=== PATIENT | female | born 1960 | race Caucasian/White ===

== ENCOUNTER → 2020-02-18 13:39 | Outpatient (BNVA) | payer BC, SELFPAY | PROVIDERS: Visit Provider Obstetrics & Gynecology | DX: Z76.89 Persons encountering health services in other specified circumstances (principal) ==

== ENCOUNTER 2020-03-04 12:42 | Outpatient (REF) | payer BC, SELFPAY ==
--- NOTE | 2020-03-04 13:04 | XR_ITS ---
EXAMINATION: XR SHOULDER, RIGHT CLINICAL INFORMATION: Pain COMPARISON: None TECHNIQUE: AP external rotation, Grashey, scapular Y, and axillary views of the right shoulder. FINDINGS: No acute fracture or dislocation. Small marginal osteophytes present along the acromioclavicular joints. Mild resorptive changes as within the acromion at the acromioclavicular joint. Soft tissues unremarkable. XR/XR shoulder RT min 2V IMPRESSION: No acute fracture or dislocation. Degenerative changes as described.
== END 2020-03-04 12:43 | disposition home or self-care (01) ==
LOC: HO.HOSX 12:42
PROVIDERS: PCP Internal Medicine; Visit Provider Physician Assistant
DX: M25.511 Pain in right shoulder (principal); M75.80 Other shoulder lesions, unspecified shoulder
CPT/HCPCS: 20610; 73030; J1040

== ENCOUNTER 2020-05-20 10:00 | Outpatient (RCR) | payer BC, SELFPAY ==
--- NOTE | 2020-03-18 11:38 | MHC.PT.EP ---
[facility] [place] Office [place] Office [place] Office [address] Angelique Calixto [address] [phone] F: [phone] F: [phone] F: [phone] F: [phone] Physical Therapy Plan of Care Date of Evaluation: 03/18/20 Date of Surgery: Diagnosis: Other shoulder lesions Assessment: This is a 59 y/o female referred to skilled PT with a diagnosis of other shoulder lesion, unspecified shoulder. SONIA: right shoulder pain suddenly after lifting her 20lb grandson out of his crib in November. She states that she felt a pop sensation and has had pain ever since. The patient went to her PCP initially and then was referred to [facility]. (+) cortisone injection 2 weeks ago w/ no relief. X-rays of the shoulder essentially negative. Pt then referred for course of physical therapy. She has no history of shoulder pain. Assessment of the shoulder reveals decreased PROM/AAROM/AROM, impaired strength, tenderness to palpation @ biceps tendon, supraspinatus, deltoid muscle belly, teres, upper trap, scalenes, and medial scap border, impaired scapulohumeral joint rhythm, weak and painful resisted tests into shoulder abduction, strong and painful resisted tests into right shoulder flex/ER/IR/adduction, and impaired posture/postural awareness. Related functional limitations include: difficulty lifting, reaching, washing hair/back, performing household tasks such as washing her tub, sleeping, and carrying. Pt will benefit from skilled PT services 2x/week for 5 weeks in order to reduce impairments and improve limitations. Frequency and Duration: The patient will be seen 2x/week for 5 weeks Short Term Goals: -In 2 weeks, Pt to improve PROM of the right shoulder in all impaired directions by at least 20 degrees. -In 3 weeks, Pt to report < 6/10 pain with movement of the right shoulder. Shelter Goals: -In 4 weeks, Pt to demonstrate the ability to retrieve a 1# object off a shelf above eye level w/ < 3/10 pain. -In 5 weeks, Pt to demonstrate I w/ HEP. -In 5 weeks, Pt to demonstrate improved AROM in all impaired directions by at least 30 degrees from IE baseline. Treatment Plan: Modalities to reduce pain, spasms and effusion. Manual therapy to restore motion and function. Therapeutic exercise to improve strength and flexibility. Neuromuscular re-education for posture and balance. Therapeutic activities to return to functional activities of daily living. Electronically signed by: Elisa Matute PT, DPT Please sign and return to therapist. Thank you for your referral.
--- NOTE | 2020-05-20 11:04 | MHC.PT.DC ---
[facility] [place] Office [place] Office [place] Office [address] Angelique Calixto [address] [phone] F: [phone] F: [phone] F: [phone] F: [phone] Physical Therapy Discharge Report Diagnosis: Other shoulder lesions Date of Surgery: Date of Evaluation: 03/18/20 Date of Discharge: 05/20/20 Treatments to Date: 14 Cancellations to Date: 0 No Shows to Date: 0 Discharge Status: Achieved Goals Improved Function Independent with HEP Discharge Summary: Pt has improved and demonstrates I w/ HEP. She still reports some soreness, but decreased functional limitations are noted and she is prepared to continue HEP on her own. SPADI: 35/130 or 27% impaired. Recommend follow up w/ Ortho or PCP if soreness continues. Electronically signed by: Elisa Matute PT, DPT Please sign and return to therapist. Thank you for your referral.
== END 2020-05-20 11:05 | disposition other institution (70) ==
LOC: HO.PT 10:00
PROVIDERS: Visit Provider Physician Assistant
DX: M75.81 Other shoulder lesions, right shoulder (principal)
CPT/HCPCS: 97033; 97110; 97140; 97161

== ENCOUNTER 2020-10-22 12:22 | Outpatient (REF) | payer BC, SELFPAY ==
--- NOTE | ~2020-10-22 | MM_ITS ---
EXAMINATION: MM SCREENING DIGITAL BREAST TOMOSYNTHESIS, BILATERAL CLINICAL INFORMATION: Screening. Asymptomatic. The lifetime risk of breast cancer based on the Tyrer-Cuzick Model is 7%. COMPARISON: Mammography: 10/15/2019, 08/10/2018, 01/23/2018, 07/18/2017 TECHNIQUE: Digital breast tomosynthesis is performed in both the craniocaudal and mediolateral oblique views along with computer-aided detection (CAD). Synthesized 2D images are generated from the tomosynthesis. FINDINGS: There are scattered areas of fibroglandular density (ACR BI-RADS breast composition Category b). The left breast shows parenchymal pattern similar to prior exams. Some grouped fine nodularity mid outer quadrant is stable. There is no developing density or interval mass or architectural abnormality. Neither breast shows abnormal calcifications. The bilateral axilla and skin contours are unremarkable. Right breast has benign-appearing smooth nodule 0.6 cm anterior central 12:00 position more conspicuous on current study. This may represent small cyst. Patient will be recalled for targeted ultrasound. MM/MM tomosynthesis screening BI IMPRESSION: 1. Right: Smooth nodule anterior central 12:00 position under 1 cm. 2. Left: No mammographic evidence of malignancy. ASSESSMENT: BI-RADS 0: Incomplete - Need Additional Imaging Evaluation RECOMMENDATION: 1. Targeted ultrasound right breast. 2. Radiology department staff will contact the patient for additional imaging. This patient's information was entered into a reminder system with a target due date for their next mammogram.
== END 2020-10-22 12:23 | disposition home or self-care (01) ==
LOC: HO.MAMMO 12:22
PROVIDERS: PCP Internal Medicine; Visit Provider Obstetrics & Gynecology
DX: Z12.31 Encounter for screening mammogram for malignant neoplasm of breast (principal)
CPT/HCPCS: 77063; 77067

== ENCOUNTER 2020-10-30 13:20 | Outpatient (REF) | payer BC, SELFPAY ==
--- NOTE | ~2020-10-30 | US_ITS ---
EXAMINATION: US DIAGNOSTIC ULTRASOUND BREAST, RIGHT CLINICAL INFORMATION: Superior right breast density. COMPARISON: 10/22/2020 and studies dating back to 07/16/2013. TECHNIQUE: Ultrasound of the breast is performed with real-time mason scale imaging and color Doppler. FINDINGS: On mammography of 10/22/2020 there is an approximately 6 mm circumscribed density 12 o'clock position without spiculation or microcalcifications. Targeted ultrasound evaluation demonstrated at the 12 o'clock position approximately 1 cm from the nipple a hypoechoic and smoothly circumscribed lesion with some distal sound enhancement and no distal sound shadowing. There is a macrolobulation present. No suspicious soft tissue component. No internal vascularity is seen. The lesion is wider than it is tall. Recommend 6 month follow-up right breast mammography. Results are discussed with the patient at time of visit. US/US breast RT limited IMPRESSION: Right breast density corresponds to a mildly complex cyst 12 o'clock position 1 cm from nipple. Recommend 6 month follow-up right breast mammography. ASSESSMENT: BI-RADS 3: Probably Benign RECOMMENDATION: Diagnostic mammography in 6 months. This patient's information was entered into a reminder system with a target due date for their next mammogram.
== END 2020-10-30 13:21 | disposition home or self-care (01) ==
LOC: HO.MAMMO 13:20
PROVIDERS: Visit Provider Obstetrics & Gynecology
DX: R92.2 Inconclusive mammogram (principal)
CPT/HCPCS: 76642

== ENCOUNTER 2020-11-13 07:37 | Outpatient (REF) | payer BC, SELFPAY ==
[2020-11-13 11:25] LABS: MANUAL DIFF FLAG NO
[2020-11-13 11:44] LABS: Basophils Percent Auto 0.4 % (0-2); Eosinophils Absolute Auto 0.1 X10*3/uL (0.0-0.4); Hematocrit 43.3 % (37-47); Hemoglobin 13.7 g/dl (12.0-16.0); Imm Gran Abs Auto 0.01 X10*3/uL (0.00-0.03); Imm Gran Pct Auto 0.1 % (0.0-0.4); Lymphocytes Absolute Auto 1.4 X10*3/uL (1.2-4.9); Lymphocytes Percent Auto 21.1 % (20-40); Mean Corpuscular HGB Conc 31.6 g/dl (31.0-35.0); Mean Corpuscular Hemoglobin 29.1 pg (27.0-33.0); Mean Corpuscular Volume 91.9 fL (80-98); Mean Platelet Volume 9.9 fL (9.4-12.3); Monocytes Absolute Auto 0.5 X10*3/uL (0.1-1.2); Monocytes Percent Auto 6.8 % (2-11); Neutrophils Absolute Auto 4.8 X10*3/uL (2.0-8.3); Neutrophils Percent Auto 70.6 % (45-73); Platelet Count 258 X10*3/uL (160-400); Red Blood Count 4.71 X10*6/uL (4.20-5.50); Red Cell Distribution Width 13.3 % (11.0-16.0); White Blood Count 6.8 X10*3/uL (4.8-10.8)
[2020-11-13 12:05] LABS: Alanine Aminotransferase 22 U/L (0-31); Anion Gap 13 (12-20); Aspartate Amino Transferase 20 U/L (5-31); Blood Urea Nitrogen 17 mg/dL (9-16); Carbon Dioxide 25 mmol/L (22-29); Chloride 108 mmol/L (96-108); Cholesterol 151 mg/dL; Estimated Glomerular Filt Rate > 60; Glucose Fasting 99 mg/dL (60-99); HDL Cholesterol 48 mg/dL; LDL Cholesterol Calculated 74 mg/dl; Potassium 4.2 mmol/L (3.3-5.1); Sodium 142 mmol/L (135-145); Triglycerides 145 mg/dL
[2020-11-13 12:09] LABS: TSH reflex Free T4 1.89 uIU/mL (0.32-4.0); Vitamin D 25-OH Total 36.3 ng/mL (>30)
== END 2020-11-13 07:38 | disposition home or self-care (01) ==
LOC: HO.HMGCLDS 07:37
PROVIDERS: PCP Internal Medicine; Visit Provider Internal Medicine
DX: Z00.01 Encounter for general adult medical examination with abnormal findings (principal); E89.40 Asymptomatic postprocedural ovarian failure; I10 Essential (primary) hypertension
CPT/HCPCS: 36415; 80048; 80061; 82306; 84443; 84450; 84460; 85025

== ENCOUNTER → 2021-02-19 13:45 | Outpatient (BNVA) | payer BC, SELFPAY | PROVIDERS: PCP Internal Medicine; Visit Provider Obstetrics & Gynecology ==

== ENCOUNTER 2021-04-27 08:49 | Outpatient (REF) | payer BC, SELFPAY ==
--- NOTE | ~2021-04-27 | US_ITS ---
EXAMINATION: US DIAGNOSTIC ULTRASOUND BREAST, RIGHT CLINICAL INFORMATION: Short interval six-month follow-up probable complicated cyst 12:00 position anterior right breast. COMPARISON: Mammography 10/22/2020, targeted right breast ultrasound 10/30/2020. TECHNIQUE: Ultrasound right breast is targeted to the anterior upper breast. Grayscale imaging and color Doppler are performed without and with harmonics. FINDINGS: Circumscribed nearly anechoic nodule again seen anterior 12:00 position measuring under 1 cm. There is no definite increase through transmission of sound and no decreased through transmission of sound. There is no peripheral or internal color flow. Margins are circumscribed. Nodule will be reassessed at time of annual bilateral mammography, due in 6 months. Results are provided to the patient at time of visit by the technologist. US/US breast RT limited IMPRESSION: Stable nodule/mildly complicated cyst anterior 12:00 right breast. ASSESSMENT: BI-RADS 3: Probably Benign RECOMMENDATION: Diagnostic mammography and targeted right breast ultrasound at time of annual bilateral breast imaging, due in 6 months. This patient's information was entered into a reminder system with a target due date for their next mammogram.
== END 2021-04-27 08:50 | disposition home or self-care (01) ==
LOC: HO.MAMMO 08:49
PROVIDERS: Visit Provider Obstetrics & Gynecology
DX: N60.01 Solitary cyst of right breast (principal)
CPT/HCPCS: 76642

== ENCOUNTER 2021-12-10 14:19 | Outpatient (REF) | payer BC, SELFPAY ==
--- NOTE | ~2021-12-10 | MM_ITS ---
EXAMINATION: MM DIAGNOSTIC DIGITAL BREAST TOMOSYNTHESIS, BILATERAL US DIAGNOSTIC ULTRASOUND BREAST, RIGHT CLINICAL INFORMATION: Due for yearly. Also follow-up probable benign mildly complicated cyst 12:00 position right breast. TC score 6%. COMPARISON: Mammography: 10/22/2020 (BI-RADS 0), 10/15/2019, 08/10/2018; right breast ultrasound 04/27/2021, 10/30/2020. TECHNIQUE: Digital breast tomosynthesis is performed in both the craniocaudal and mediolateral oblique views along with computer-aided detection (CAD). Synthesized 2D images are generated from the tomosynthesis. Additional spot right CC and spot right ML views are obtained. Ultrasound right breast is targeted to the anterior upper breast. Grayscale imaging and color Doppler are performed without and with harmonics. FINDINGS: There are scattered areas of fibroglandular density (ACR BI-RADS breast composition Category b). Breast parenchymal pattern is similar to prior studies. Background stromal and fibroglandular densities are stable. There is no increasing nodularity or interval mass, architectural abnormality or abnormal calcifications. The axilla are unremarkable. The mildly complicated cyst on ultrasound anterior 12:00 right breast under 1 cm has smooth margins, anechoic, and no associated color flow. There is questionable increased through-transmission of sound. A smaller adjacent circumscribed nodule is more superficial is again seen of only a few millimeters in size. No changes. The right breast nodule will be reassessed again at next bilateral mammography to conclude long-term surveillance. Results are provided to the patient at time of visit by the technologist. MM/MM tomosynthesis diagnostic BI IMPRESSION: -Mammogram shows no significant changes from prior studies. -The probable benign mildly complicated cyst anterior 12:00 right breast is stable. ASSESSMENT: BI-RADS 3: Probably Benign RECOMMENDATION: Diagnostic mammography at time of next annual exam, due in 12 months. This patient's information was entered into a reminder system with a target due date for their next mammogram.
== END 2021-12-10 14:20 | disposition home or self-care (01) ==
LOC: HO.MAMMO 14:19
PROVIDERS: Visit Provider Internal Medicine
DX: N60.01 Solitary cyst of right breast (principal)
CPT/HCPCS: 76642; 77062; 77066

== ENCOUNTER 2022-03-09 06:21 | Outpatient (REF) | payer BC, SELFPAY ==
[2022-03-09 14:14] LABS: Alanine Aminotransferase 21 U/L (0-31); Anion Gap 11 (12-20); Aspartate Amino Transferase 19 U/L (5-31); Blood Urea Nitrogen 20 mg/dL (9-16); Calcium 8.8 mg/dL (8.4-10.2); Carbon Dioxide 27 mmol/L (22-29); Chloride 108 mmol/L (96-108); Cholesterol 161 mg/dL; Estimated Glomerular Filt Rate > 60; Glucose Fasting 107 mg/dL (60-99); HDL Cholesterol 48 mg/dL; LDL Cholesterol Calculated 85 mg/dl; Potassium 4.3 mmol/L (3.3-5.1); Sodium 142 mmol/L (135-145); Triglycerides 141 mg/dL; Vitamin D 25-OH Total 37.6 ng/mL (>30)
== END 2022-03-09 06:22 | disposition home or self-care (01) ==
LOC: HO.HMGCLDS 06:21
PROVIDERS: PCP Internal Medicine; Visit Provider Internal Medicine
DX: I10 Essential (primary) hypertension (principal); E89.40 Asymptomatic postprocedural ovarian failure
CPT/HCPCS: 36415; 80048; 80061; 82306; 84450; 84460

== ENCOUNTER 2022-03-11 10:47 | Outpatient (REF) | payer BC, SELFPAY ==
--- NOTE | ~2022-03-11 | XR_ITS ---
EXAMINATION: XR KNEE, LEFT CLINICAL INFORMATION: Left knee pain. COMPARISON: None TECHNIQUE: Four views of the left knee. FINDINGS: Bones and soft tissues are normal. No fracture or joint effusion. Alignment is anatomic. Joint spaces are well maintained. No abnormal soft tissue calcification. XR/XR knee LT 4V IMPRESSION: Unremarkable examination.
== END 2022-03-11 10:48 | disposition home or self-care (01) ==
LOC: HO.HMGCX 10:47
PROVIDERS: PCP Internal Medicine; Visit Provider Internal Medicine
DX: M25.562 Pain in left knee (principal)
CPT/HCPCS: 73564

== ENCOUNTER 2022-05-25 11:00 | Outpatient (RCR) | payer BC, SELFPAY ==
--- NOTE | 2022-03-30 10:14 | MHC.PT.EP ---
[facility] [place] Office [place] Office [place] Office [address] Angelique Calixto [address] [phone] F: [phone] F: [phone] F: [phone] F: [phone] Physical Therapy Plan of Care Date of Evaluation: Date of Surgery: N/A Diagnosis: pain in left knee (RC) Assessment: pt is a 61 y/o female presenting to physical therapy w/ referring diagnosis of pain in left knee. Given SONIA and symptoms of clicking, popping, and crepitus I am questioning a soft tissue injury. She has only had xray at this time. Will continue to monitor and treat or refer as appropriate. Impairments include pain, decreased range of motion, decreased strength, impaired functional mobility, impaired postural awareness, and altered ambulation mechanics. pt is a good candidate for skilled PT due to age, potential remediation of impairments, typyical disease/condition progression and prognosis, comorbidities, and motivation. pt would benefit from skilled PT intervention to provide a tailored strengthening and stretching exercise program, functional training, gait training, postural re-training, neuromuscular re-education, modalities as needed for pain, equipment safety demonstration. Frequency and Duration: The patient will be seen 2x/wk for 4 wks Short Term Goals: pt will be I w/ HEP to promote self-management of condition. pt will improve L quad strength by 1 MMT to promote ease in sit<>stand transfers. Surgical Assist Goals: pt will report a statistically significant improvement in self-reported outcome measure, LEFI, to promote return to PLOF. pt will demo reciprocal pattern to navigate stairs x10 using LRAD to promote ease in accessing basement for laundry. Treatment Plan: Modalities to reduce pain, spasms and effusion. Manual therapy to restore motion and function. Therapeutic exercise to improve strength and flexibility. Neuromuscular re-education for posture and balance. Therapeutic activities to return to functional activities of daily living. Electronically signed by: Nicole Rice PT, DPT Please sign and return to therapist. Thank you for your referral.
--- NOTE | 2022-06-17 09:28 | MHC.PT.DC ---
[facility] [place] Office [place] Office [place] Office [address] Angelique Calixto 140 [facility] [phone] F: [phone] F: [phone] F: [phone] F: [phone] Physical Therapy Discharge Report Diagnosis: pain in left knee (RC) Date of Surgery: N/A Date of Evaluation: 03/29/22 Date of Discharge: 06/17/22 Treatments to Date: 11 Cancellations to Date: 0 No Shows to Date: 0 Discharge Status: Improved Function Independent with HEP Discharge Summary: The patient reported overall a 70% improvement since starting physical therapy. She has noticed a big improvement in her pain intensity and frequency. She reported a significant improvement in her ambulation and stair tolerance. She reported a statistically significant improvement in her self-reported outcome measure, LEFI. She will be placed on hold for 3 weeks. If I do not hear from her in that time I will D/C the chart. Electronically signed by: Nicole Rice PT, DPT Please sign and return to therapist. Thank you for your referral.
== END 2022-06-17 09:28 | disposition home or self-care (01) ==
LOC: HO.PT 11:00
PROVIDERS: PCP Internal Medicine; Visit Provider Internal Medicine
DX: M25.562 Pain in left knee (principal)
CPT/HCPCS: 97110; 97140; 97162

== ENCOUNTER → 2022-07-15 09:54 | Outpatient (BNVA) | payer BC, SELFPAY | PROVIDERS: PCP Internal Medicine; Visit Provider Obstetrics & Gynecology | DX: Z13.89 Encounter for screening for other disorder (principal) ==

== ENCOUNTER 2022-12-13 10:49 | Outpatient (REF) | payer BC, SELFPAY ==
--- NOTE | ~2022-12-13 | MM_ITS ---
EXAMINATION: MM DIAGNOSTIC DIGITAL BREAST TOMOSYNTHESIS, BILATERAL US BREAST LIMITED, RIGHT MAMMOGRAPHY: CLINICAL INFORMATION: 1 year Follow-up for oval nodules right breast 12:00 axis. Patient also due for bilateral screening. COMPARISON: Mammography: 12/10/2021, 10/22/2020, 10/15/2019, 08/10/2018, 07/18/2017, 03/22/2016, and dating back to 2012. TECHNIQUE: Digital breast tomosynthesis is performed in both the craniocaudal and mediolateral oblique views along with computer-aided detection (CAD). Synthesized 2D images are generated from the tomosynthesis. FINDINGS: There are scattered areas of fibroglandular density (ACR BI-RADS breast composition Category b). Stable small oval nodule at 12:00 in the right breast. No additional nodules or masses evident in this region. Otherwise, parenchymal pattern of both breasts is stable and unchanged. There are no suspicious masses, suspicious grouped calcifications, or areas of architectural distortion. ULTRASOUND: CLINICAL INFORMATION: Follow-up complicated cysts versus nodules 12:00 right breast. COMPARISON: Comparison made to 12/10/2021, 04/27/2021, 10/30/2020. TECHNIQUE: Targeted sonographic evaluation right breast 12:00 axis was performed using a high frequency linear transducer. Selected archived documentation. FINDINGS: RIGHT BREAST: The larger slightly elongated cyst previously seen right breast 12:00, 2 cm from the nipple has resolved on today's study and only a tiny remnant noted to remain. Immediately more superficial is a stable 3 x 3 x 3 mm complicated cyst 1 cm from the nipple which has been stable since 04/27/2021. This remains probably benign, and 6 month interval follow-up targeted right breast ultrasound will confirm benignity if unchanged, with two-year stability at that time. MM/MM tomosynthesis diagnostic BI IMPRESSION: Stable benign findings. No suspicious mammographic abnormalities. 1 year follow-up routine screening mammography advised. Stable probably benign 3 x 3 x 3 mm complicated cyst on ultrasound, 12:00 axis 1 cm from the nipple. Six-month interval follow-up right breast targeted ultrasound is advised to establish two-year stability. OVERALL ASSESSMENT: Mammography: BI-RADS 3 - Probably benign finding(s) - 6 month follow-up suggested Ultrasound: BI-RADS 3 - Probably benign finding(s) - 6 month follow-up suggested RECOMMENDATION: 6 Month F/U Results were provided to the patient at time of visit by the technologist. This patient's information was entered into a reminder system with a target due date for their next mammogram.
== END 2022-12-13 10:50 | disposition home or self-care (01) ==
LOC: HO.MAMMO 10:49
PROVIDERS: PCP Internal Medicine; Visit Provider Internal Medicine
DX: R92.8 Other abnormal and inconclusive findings on diagnostic imaging of breast (principal); N60.01 Solitary cyst of right breast
CPT/HCPCS: 76642; 77062; 77066

== ENCOUNTER 2023-03-01 06:25 | Outpatient (REF) | payer BC, SELFPAY ==
[2023-03-01 08:05] LABS: Alanine Aminotransferase 32 U/L (0-31); Anion Gap 11 (12-20); Aspartate Amino Transferase 19 U/L (5-31); Blood Urea Nitrogen 22 mg/dL (9-16); Calcium 9.6 mg/dL (8.4-10.2); Carbon Dioxide 25 mmol/L (22-29); Chloride 108 mmol/L (96-108); Cholesterol 175 mg/dL (<200); Estimated Glomerular Filt Rate > 60; Glucose Fasting 103 mg/dL (60-99); HDL Cholesterol 59 mg/dL (>40); LDL Cholesterol Calculated 93 mg/dL (<100); Potassium 4.2 mmol/L (3.3-5.1); Sodium 140 mmol/L (135-145); Triglycerides 117 mg/dL (<150)
[2023-03-01 08:13] LABS: Vitamin D 25-OH Total 42.7 ng/mL (>30)
== END 2023-03-01 06:26 | disposition home or self-care (01) ==
LOC: HO.LAB 06:25
PROVIDERS: PCP Internal Medicine; Visit Provider Internal Medicine
DX: Z13.220 Encounter for screening for lipoid disorders (principal); E89.40 Asymptomatic postprocedural ovarian failure; I10 Essential (primary) hypertension
CPT/HCPCS: 36415; 80048; 80061; 82306; 84450; 84460

== ENCOUNTER 2023-03-15 12:17 | Outpatient (AMB) | payer BC, SELFPAY ==
[2023-03-15 12:46] VITALS: BP 142/90; PULSE 91; O2SAT 98; BMI 40.0
--- NOTE | 2023-03-15 12:46 | MHC.PC.OV ---
Vital Signs 03/15/23 12:46 Height 5 ft 8 in Weight 263 lb BMI 40.0 BP 142/90 H Blood Pressure Location Rt brachial Position Sitting Pulse 91 Pulse Source Pulse Oximeter Pulse Oximetry (%) 98 Oxygen Delivery Method Room Air Intake Visit Reasons: Annual PE Allergies codeine [Codeine] Allergy (Mild, Verified 04/13/23 21:51) HIVES Medication List - Last Reconciled 04/13/23 by Tammie Hamilton MD acetaminophen mg PO albuterol sulfate 90 mcg/actuation 1 puff PO Q4H PRN calcium carbonate (Calcium Antacid) 650 mg PO DAILY cetirizine 10 mg PO BEDTIME cholecalciferol (vitamin D3) 125 mcg PO DAILY fluticasone propionate 50 mcg/actuation 1 spray intranasal DAILY ibuprofen mg PO lisinopril 30 mg PO DAILY melatonin 10 mg PO BEDTIME PRN metoprolol succinate ER 25 mg PO DAILY Tobacco use date assessed: 03/15/23 Dental Screening Dental Screen Date: 03/15/23 Did you have a dental visit in the last 12 months?: Yes Did you have a dental problem in the last 6 months where you did not have access to dental care?: Yes Was dental information given to patient?: Patient has dentist HPI Annual PE HPI Details 62-year-old lady here today for a physical exam . She has hypertension, currently on lisinopril 30 mg daily and metoprolol succinate ER 25 mg daily. Blood pressure is mildly elevated on today's visit. She has seasonal allergic rhinitis , currently using Flonase nasal spray as needed and takes cetirizine 10 mg at bedtime. She it has osteoarthritis, takes ibuprofen and alternating it with ibuprofen. She is up-to-date with her screening colonoscopy and mammogram. [facility] Medical History (Updated 04/13/23 @ 21:57 by Tammie Hamilton MD) Posterior left knee pain Surgical menopause Family history of malignant melanoma Right shoulder pain Uterine fibroid Osteoarthritis of spine Seasonal allergies Essential hypertension Surgical History History of removal of nevus History of back surgery History of endometrial biopsy History of total abdominal hysterectomy and bilateral salpingo-oophorectomy Family History Father No problems noted. Mother Epilepsy Lupus Cervical cancer Maternal Grandfather Asthma Maternal Grandmother Heart disease Paternal Grandfather No problems noted. Paternal Grandmother Stroke Dementia Diabetes mellitus Brother No problems noted. Son No problems noted. 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 Sexual orientation: Straight/Heterosexual Gender identity: Female Cognitive needs: No Hearing needs: No Vision needs: Yes Female Reproductive History Menstrual Other: Currently sees Dr. Jarquin Questionnaire PHQ-9 Over the last 2 weeks, how often have you been bothered by any of the following problems? 1. Little interest or pleasure in doing things: not at all 2. Feeling down, depressed, or hopeless: not at all 3. Trouble falling or staying asleep, or sleeping too much: not at all 4. Feeling tired or having little energy: several days 5. Poor appetite or overeating: several days 6. Feeling bad about yourself - or that you are a failure or have let yourself or your family down: not at all 7. Trouble concentrating on things, such as reading the newspaper or watching television: not at all 8. Moving or speaking so slowly that other people could have noticed. Or the opposite - being so fidgety or restless that you have been moving around a lot more than usual: not at all 9. Thoughts that you would be better off or of hurting yourself in some way: not at all Total score: 2 Depression Screening Interpretation: Negative Depression Screening Done: Yes 86251 - PHQ-9 Billing: Yes Source: Developed by Drs. Saravanan Gonzales, Sol Thompson, Alberto Killian and colleagues, with an educational gerardo from [employer]. Thrive Questionnaire Date Thrive assessed: 03/15/23 I am a: Patient What is your living situation today?: I have a steady place to live Within the past 12 months, did the food you bought not last and you didn't have the money to get more?: Never true Within the past 12 months, did you worry whether your food would run out before you got money to buy more?: Never true Do you have trouble paying for medicines?: No Do you have trouble getting transportation to medical appointments?: No Do you have trouble paying your heating and electricity bill?: No Do you have trouble taking care of your child, family member or friend?: No Do you have trouble with day-to-day activities such as bathing, preparing meals, shopping, managing finances, etc.?: No Are you currently unemployed and looking for a job?: No Are you interested in more education?: No AUDIT C Alcohol Use Questionnaire (AUDIT-C) 1. How often do you have a drink containing alcohol?: Monthly or less 2. How many drinks containing alcohol do you have on a typical day when you are drinking?: 1 or 2 3. How often do you have six or more drinks on one occasion?: Never Total Score: 1 KALPESH-7 AMB Questionnaire KALPESH-7 Date KALPESH - 7 assessed: 03/15/23 Feeling nervous, anxious, or on edge: 1 = Several days Not being able to stop or control worryin = Several days Worrying too much about different things: 1 = Several days Trouble relaxin = Not at all Being so restless that it is hard to sit still: 0 = Not at all Becoming easily annoyed or irritable: 1 = Several days Feeling afraid as if something awful might happen: 0 = Not at all Total KALPESH-7 score (0-4 normal; 5-9 mild; 10-14 moderate; 15-21 severe): 4 Source: Developed by Drs. Saravanan Gonzales, Sol Thompson, Alberto Killian and colleagues, with an educational gerardo from [employer]. KALPESH-7 Assessment Billing KALPESH-7 Assessment Tool: KALPESH-7 Assessment 52197 Review of Systems Const Denies body aches, Denies fatigue, Denies fever(s), Denies headache(s) and Denies weakness Eyes Denies change in vision ENT Denies dizziness and Denies headache(s) Card Denies chest pain, Denies lightheadedness, Denies palpitations and Denies dyspnea Resp Denies chest congestion, Denies cough and Denies dyspnea GI Denies abdominal pain, Denies change in bowel habits and Denies heartburn Denies urinary frequency, Denies dysuria and Denies urinary urgency Musc Reports as per HPI Skin/Breast Denies breast pain, Denies breast mass and Denies rash Neuro Denies dizziness, Denies headache(s) and Denies weakness Psych Reports no additional complaints Endo Denies fatigue, Denies polydipsia, Denies polyuria and Denies palpitations Eliseo/Lymph Reports no additional complaints Aller/Immun Reports no additional complaints Physical exam (Primary Care) Vital Signs: Last Vital Signs Pulse 91 03/15/23 12:46 BP 142/90 H 03/15/23 12:46 Pulse Ox 98 03/15/23 12:46 Oxygen Delivery Method Room Air 03/15/23 12:46 BMI result Body Mass Index 40.0 Tobacco/Smoking Status: Tobacco use Status Tobacco use date assessed 03/15/23 03/15/23 12:51 Patient Tobacco Use Status Former Tobacco user 03/15/23 12:47 e-Cigarette/Vaping Use Never Used 03/15/23 12:47 PHQ-9: PHQ-9 Score PHQ-9: Total score 3 04/13/23 21:53 Depression Screening Interpretation: Negative Thrive Assessment: Date of Thrive Assessment Date Thrive assessed 03/15/23 03/15/23 12:51 Const General: comfortable and no acute distress Nutritional Appearance: obese Orientation/consciousness: patient oriented x3 HENMT Head: Yes normocephalic and Yes atraumatic Mouth: Normal oral and palatal mucosa present and moist mucous membranes Eyes General: appearance normal, both eyes and all related structures Neck Neck: Yes full ROM, Yes no lymphadenopathy and Yes supple Thyroid: Thyroid normal Chest Breast/axilla palpation: normal palpation of the breasts Resp Effort & Inspection: normal respiratory effort and able to speak in complete sentences Auscultation: clear to auscultation bilaterally Cardio Rate: regular rate Rhythm: regular rhythm Heart sounds: S1 normal heart sound present and S2 normal heart sound present GI Palpation (GI): Soft to palpation, nontender and no guarding Auscultation: normal bowel sounds General: Yes no CVA tenderness and Yes deferred (Sees her Ob) Back/Spine/Pelvis Back: no CVA tenderness and No back tenderness Skin General skin exam: no rashes or lesions noted Neuro General: patient oriented x3, gait normal, tone normal, moves all extremities, no focal motor deficits and CN's II-XI intact bilaterally Extrem General: Yes full ROM, Yes no joint enlargement, Yes no pedal edema and Yes normal gait Psych Appearance: grossly normal and well kempt Affect: normal affect Office Procedures Flu Questionnaire Does the patient have a severe egg allergy?: No Does the patient have severe life threatening allergies?: No Does the patient have a fever or illness today?: No Has the patient ever had Guillain-[place] Syndrome?: No Has the patient ever had any past reaction to a flu shot?: No Immunizations flu vacc [id number] 6mos up(PF) 60 mcg(15 mcgx4)/0.5 mL IM syringe Performing Provider: Tammie Hamilton MD [place] [facility] [place] Administered by: Gisselle Chase CMA on 03/15/23 13:48 Dose Route Admin Location Dispensed Lot Number Expiration Date [facility] 0.5 mL IM Left Deltoid 0.5 mL [id number] 09/18/23 32511-341-29 [employer] VIS Given Date VIS Provided VIS Publication Date 03/15/23 Single Vaccine 20 Eligibility Eligibility Date Funding Source Not VFC Eligible 03/15/23 Private Results Reviewed Results Reviewed: Name: Tania Moss Age/Sex: 62/F : 1960 Unit#: [id number] Attend Dr: Tammie Hamilton MD Re03/01/23 Status: DEP [facility] Disch: SPEC : [id number] AUDREY: 03/01/23 STATUS: COMP REQ : [id number] RECD: 03/01/[address]: Tammie Hamilton MD COMP: 03/01/23 ENTERED: 03/01/[address]: ORDERED: Met Prof Fast, AST, ALT, Lipid Panel, Vitamin D 25-OH Test Result Flag Reference Sodium 140 135-145 mmol/L Potassium 4.2 3.3-5.1 mmol/L CL 108 96-108 mmol/L CO2 25 22-29 mmol/L Gap 11 L 12-20 BUN 22 H 9-16 mg/dL Creat 0.83 0.5-1.4 mg/dL EGFR > 60 NOTE: For -Dominican individuals, multiply the result by 1.210. Chronic Kidney Disease: Estimated GFR < 60 mL/min/1.73m2 Severe Kidney Disease: Estimated GFR < 15 mL/min/1.73m2 FBS 103 H 60-99 mg/dL A fasting glucose from 100-125 mg/dl is considered impaired (pre-diabetes). CA 9.6 # 8.4-10.2 mg/dL AST (GOT) 19 5-31 U/L ALT (GPT) 32 H 0-31 U/L Triglyceride 117 <150 mg/dL Desirable Triglyceride: less than 150 mg/dL Borderline High Triglyceride 150-199 mg/dL High Triglyceride: 200-499 mg/dL Very High Triglyceride: greater than or equal to 5OO mg/dL Cholesterol 175 <200 mg/dL Desirable Cholesterol: less than 200 mg/dL Borderline High Cholesterol: 200-239 mg/dL High Cholesterol: greater than 239 mg/dL LDL Calculated 93 <100 mg/dL Desirable LDL: less than 100 mg/dL Near Optimal/Above Optimal LDL: 110-129 mg/dL Borderline High LDL: 130-159 mg/dL High LDL: 160-189 mg/dL Very High LDL: greater than or equal to 190 mg/dL HDL 59 >40 mg/dL Desirable HDL: greater than 40 mg/dL Note: This HDL assay may give artificially low results in patients with liver disease. Vit D 25-OH Tot 42.7 >30 ng/mL Health Based Reference Values* < 20 ng/mL Deficient 20-30 ng/mL Insufficient > 30 ng/mL Sufficient Assessment and Plan Assessment & Plan (1) Annual visit for general adult medical examination with abnormal findings: Code(s): Z00.01 - Encounter for general adult medical examination with abnormal findings Plan: Results of recent fasting labs reviewed with patient. Recommended dental visit every 6 months and regular eye exams, at least every 2 years. Take adequate calcium in diet and vitamin-D 3 at 2000 IU per cap once a day, in addition to weight-bearing exercises to help maintain good muscle tone and weight control. Continue with yearly mammograms, currently up-to-date. She is also up-to-date with her screening colonoscopy. Currently followed yearly by Dr. Jarquin. Flu vaccine given today (2) Essential hypertension: Code(s): I10 - Essential (primary) hypertension Plan: Blood pressure goal less than 130/90. Will continue on lisinopril and metoprolol, strict adherence to low-salt diet and getting regular exercise. (3) Seasonal allergies: Code(s): J30.2 - Other seasonal allergic rhinitis Plan: Controlled with fluticasone nasal spray and cetirizine 10 mg at bedtime (4) Osteoarthritis of spine: Code(s): M47.9 - Spondylosis, unspecified Qualifiers: Spinal osteoarthritis complication: unspecified spinal osteoarthritis Spinal region: unspecified Qualified Code(s): M47.9 - Spondylosis, unspecified Plan: Takes alternating dose of ibuprofen and Tylenol as needed for pain Orders: Orders Influenza [id number] Immunization 03/15/23 Z23 - Encounter for immunization Medications: New albuterol sulfate 90 mcg/actuation 1 puff PO Q4H PRN 8.5 grams 1RF shortness of breath or wheezing Changed From fluticasone propionate 50 mcg/actuation intranasal To fluticasone propionate 50 mcg/actuation 1 spray intranasal DAILY 16 grams 0RF Coding Level of Care Code Est Pt Prev Care 40-64y(34088) Diagnoses Annual visit for general adult medical examination with abnormal findings Z00.01 Essential hypertension I10 Seasonal allergies J30.2 Osteoarthritis of spine, unspecified spinal osteoarthritis complication status, unspecified spinal region M47.9 Spinal osteoarthritis complication: unspecified spinal osteoarthritis Spinal region: unspecified Additional Codes KALPESH-7 Assessment Billing - KALPESH-7 Assessment Tool: KALPESH-7 Assessment 91377 ([id number])
== END 2023-03-15 13:40 | disposition home or self-care (01) ==
PROVIDERS: Visit Provider Internal Medicine
DX: Z23 Encounter for immunization (principal)
CPT/HCPCS: 90471; 90686; 99396

== ENCOUNTER 2023-06-13 10:38 | Outpatient (REF) | payer BC, SELFPAY ==
--- NOTE | ~2023-06-13 | US_ITS ---
EXAMINATION: US DIAGNOSTIC ULTRASOUND BREAST, RIGHT CLINICAL INFORMATION: Follow-up 2 tiny complicated cysts in the 12:00 axis right breast. (Final follow-up for two-year stability if stable) COMPARISON: 12/13/2022, 12/10/2021, 04/27/2021, 10/30/2020 (BI-RADS 0). TECHNIQUE: Ultrasound of the breast is performed with real-time mason scale imaging and color Doppler. FINDINGS: RIGHT BREAST: There is a minimally smaller 3 x 2 x 3 mm complicated cyst 12:00 axis, 1 cm from the nipple which has been essentially stable since 04/27/2021. There is an abutting unchanged 2 x 2 x 2 cm minimally complicated cyst also unchanged. US/US breast RT limited mamm only IMPRESSION: No findings suspicious for malignancy. Minimally smaller 3 x 2 x 3 mm complicated cyst on ultrasound, 12:00 axis 1 cm from the nipple. Stable abutting minimally complicated 2 x 2 x 2 mm cyst. These have been stable over 2 years and are benign. No further follow-up recommended. Recommend the patient return to routine annual screening. ASSESSMENT: BI-RADS 2 - Benign Findings RECOMMENDATION: 1 year F/U This patient's information was entered into a reminder system with a target due date for their next mammogram.
== END 2023-06-13 10:39 | disposition home or self-care (01) ==
LOC: HO.MAMMO 10:38
PROVIDERS: PCP Internal Medicine; Visit Provider Internal Medicine
DX: N60.01 Solitary cyst of right breast (principal)
CPT/HCPCS: 76642

== ENCOUNTER → 2023-06-13 11:00 | Outpatient (BNV) | payer BC, SELFPAY | PROVIDERS: PCP Internal Medicine; Visit Provider Radiology Diagnostic Radiology | DX: N60.01 Solitary cyst of right breast (principal) | CPT/HCPCS: 76642 ==

== ENCOUNTER 2023-07-18 10:58 | Outpatient (AMB) | payer BC, SELFPAY ==
--- NOTE | 2023-07-18 11:07 | A.OFFVIS_ITS ---
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 No complaints. Last Pap/HPV was in 04/05, the patient is status post TAHBSO in 02/06 Last Mammogram was BI-RADS 3 in 12/11, the recommendation was to repeat in 6 months, ultrasound was done in 06/10 BI-RADS 1, the recommendation was to repeat screening mammogram in 1 year Last Colonoscopy was in 04/05, the recommendation was to repeat in 10 years [facility] Medical History Posterior left knee pain Surgical menopause Family history of malignant melanoma Right shoulder pain Uterine fibroid Osteoarthritis of spine Seasonal allergies Essential hypertension Surgical History History of removal of nevus History of back surgery History of endometrial biopsy History of total abdominal hysterectomy and bilateral salpingo-oophorectomy Family History Father No problems noted. Mother Epilepsy Lupus Maternal Grandfather Asthma Maternal Grandmother Heart disease Paternal Grandfather No problems noted. Paternal Grandmother Stroke Dementia Diabetes mellitus Brother No problems noted. Son No problems noted. 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 Sexual orientation: Straight/Heterosexual Gender identity: Female Cognitive needs: No Hearing needs: No Vision needs: Yes Female Reproductive History Menstrual Menopause type: surgical Total pregnancies: 3 Full term: 2 Number of Living Children: 2 Ab spontaneous: 1 Date of last pap smear: 03/24/15 (neg pap and hpv) Date of Mammogram: 12/13/22 Review of Systems Const All systems reviewed & are unremarkable except as noted in HPI and below Card Reports as per HPI and Reports no additional complaints Resp Reports as per HPI and Reports no additional complaints GI Reports as per HPI and Reports no additional complaints Reports as per HPI Physical Exam Vital Signs: Last Vital Signs BP 132/80 07/18/23 11:09 BMI result Body Mass Index 39.7 Const General: cooperative, healthy appearing and comfortable General: Yes bladder normal to palpation External Female Exam: No lesion Speculum Exam - Vagina: normal appearance of the vagina, normal vaginal discharge and not erythematous Speculum Exam - Cervix: Cervix absent Bimanual exam- vagina & uterus: bladder normal to palpation and uterus absent Bimanual Exam- Adnexa, other: Other (No masses detected) Assessment & Plan Assessment & Plan (1) Well woman exam: Code(s): Z01.419 - Encounter for gynecological examination (general) (routine) without abnormal findings Category: Medical Plan: Co testing not indicated since the patient is status post hysterectomy with no history of abnormal Pap smears. Counseled the patient about the recommended dietary allowance of 1200 mg of Calcium & 600 IU of vitamin D. Instructions given the patient to schedule her next Mammogram. The patient was instructed to perform monthly self-breast exams and schedule annual exam in a year. All questions answered and the patient verbalized understanding. Coding Level of Care Code Est Pt Prev Care 40-64y(77254) Diagnoses Well woman exam Z01.419
[2023-07-18 11:09] VITALS: BP 132/80; BMI 39.7
== END 2023-07-18 13:02 | disposition home or self-care (01) ==
PROVIDERS: Visit Provider Obstetrics & Gynecology
DX: Z01.419 Encounter for gynecological examination (general) (routine) without abnormal findings (principal)
CPT/HCPCS: 99396

== ENCOUNTER → 2023-07-18 10:58 | Outpatient (BNVA) | payer BC, SELFPAY | PROVIDERS: Visit Provider Obstetrics & Gynecology ==

== ENCOUNTER 2023-07-22 11:10 | Outpatient (AMB) | payer BC, SELFPAY ==
[2023-07-22 11:44] VITALS: BP 136/84; PULSE 83; O2SAT 97; BMI 39.5
--- NOTE | 2023-07-22 11:44 | MHC.PC.OV ---
Vital Signs 07/22/23 11:44 07/22/23 12:35 Height 5 ft 8 in Weight 260 lb BMI 39.5 BP 136/84 130/80 Blood Pressure Location Rt brachial Rt brachial Position Sitting Sitting Pulse 83 Pulse Source Pulse Oximeter Pulse Oximetry (%) 97 Oxygen Delivery Method Room Air Intake Visit Reasons: f/u HTN Intake Note: Patient here for HTN f/u. Allergies codeine [Codeine] Allergy (Mild, Verified 07/22/23 12:14) HIVES Medication List - Last Reconciled 07/22/23 by Tammie Hamilton MD acetaminophen mg PO albuterol sulfate 90 mcg/actuation 1 puff PO Q4H PRN calcium carbonate (Calcium Antacid) 650 mg PO DAILY cetirizine 10 mg PO BEDTIME cholecalciferol (vitamin D3) 125 mcg PO DAILY fluticasone propionate 50 mcg/actuation 1 spray intranasal DAILY ibuprofen mg PO lisinopril 30 mg PO DAILY melatonin 10 mg PO BEDTIME PRN metoprolol succinate ER 25 mg PO DAILY Tobacco use date assessed: 07/22/23 Dental Screening Dental Screen Date: 07/22/23 Did you have a dental visit in the last 12 months?: Yes Did you have a dental problem in the last 6 months where you did not have access to dental care?: No Was dental information given to patient?: Patient has dentist HPI f/u HTN HPI Details 62-year-old lady with hypertension currently on lisinopril 30 mg taken once a day in a.m. and metoprolol succinate 25 mg once a day in a.m. as well, here today for follow-up. Patient states that she has been checking her blood pressure with her own monitor at home and it has been fluctuating, would get 160 over 90 when she is resting but blood pressure goes down to 120/70 after she exercises. She has been compliant with her diet, cutting back on lot of salt, and cutting back on her carbohydrate intake, does regular exercise 30 minutes daily. Denies any chest pain, no headache no lightheadedness, no shortness of breath [facility] Medical History (Updated 07/22/23 @ 12:38 by Tammie Hamilton MD) Surgical menopause Family history of malignant melanoma Right shoulder pain Uterine fibroid Osteoarthritis of spine Seasonal allergies Essential hypertension Surgical History History of removal of nevus History of back surgery History of endometrial biopsy History of total abdominal hysterectomy and bilateral salpingo-oophorectomy Family History Father No problems noted. Mother Epilepsy Lupus Maternal Grandfather Asthma Maternal Grandmother Heart disease Paternal Grandfather No problems noted. Paternal Grandmother Stroke Dementia Diabetes mellitus Brother No problems noted. Son No problems noted. 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 1. Little interest or pleasure in doing things: not at all 2. Feeling down, depressed, or hopeless: not at all 3. Trouble falling or staying asleep, or sleeping too much: several days 4. Feeling tired or having little energy: several days 5. Poor appetite or overeating: several days 6. Feeling bad about yourself - or that you are a failure or have let yourself or your family down: several days 7. Trouble concentrating on things, such as reading the newspaper or watching television: not at all 8. Moving or speaking so slowly that other people could have noticed. Or the opposite - being so fidgety or restless that you have been moving around a lot more than usual: not at all 9. Thoughts that you would be better off or of hurting yourself in some way: not at all Total score: 4 Depression Screening Interpretation: Negative Depression Screening Done: Yes 04116 - PHQ-9 Billing: Yes Source: Developed by Drs. Saravanan Gonzales, Sol Thompson, Alberto Killian and colleagues, with an educational gerardo from [employer]. Thrive Questionnaire Date Thrive assessed: 07/22/23 I am a: Patient What is your living situation today?: I have a steady place to live Within the past 12 months, did the food you bought not last and you didn't have the money to get more?: Never true Within the past 12 months, did you worry whether your food would run out before you got money to buy more?: Never true Do you have trouble paying for medicines?: No Do you have trouble getting transportation to medical appointments?: No Do you have trouble paying your heating and electricity bill?: No Do you have trouble taking care of your child, family member or friend?: No Do you have trouble with day-to-day activities such as bathing, preparing meals, shopping, managing finances, etc.?: No Are you currently unemployed and looking for a job?: No Are you interested in more education?: No Currently or been in a relationship where the following occur: I choose not to answer this question THRIVE Score: 0 AUDIT C Alcohol Use Questionnaire (AUDIT-C) 1. How often do you have a drink containing alcohol?: Never 3. How often do you have six or more drinks on one occasion?: Never Total Score: 0 Score Reviewed/Action Taken: No KALPESH-7 AMB Questionnaire KALPESH-7 Date KALPESH - 7 assessed: 03/15/23 Feeling nervous, anxious, or on edge: 1 = Several days Not being able to stop or control worryin = Several days Worrying too much about different things: 1 = Several days Trouble relaxin = Not at all Being so restless that it is hard to sit still: 0 = Not at all Becoming easily annoyed or irritable: 0 = Not at all Feeling afraid as if something awful might happen: 1 = Several days Total KALPESH-7 score (0-4 normal; 5-9 mild; 10-14 moderate; 15-21 severe): 4 Source: Developed by Drs. Saravanan Gonzales, Sol Thompson, Alberto Killian and colleagues, with an educational gerardo from [employer]. KALPESH-7 Assessment Billing KALPESH-7 Assessment Tool: KALPESH-7 Assessment 65287 Review of Systems Const Denies fatigue, Denies fever(s), Denies headache(s) and Denies weakness Eyes Denies change in vision ENT Denies dizziness and Denies headache(s) Card Denies chest pain, Denies lightheadedness, Denies palpitations and Denies dyspnea Resp Denies chest congestion, Denies cough and Denies dyspnea GI Denies abdominal pain, Denies change in bowel habits and Denies heartburn Denies urinary frequency, Denies dysuria and Denies urinary urgency Neuro Denies dizziness, Denies headache(s) and Denies weakness Endo Denies fatigue, Denies polydipsia, Denies polyuria and Denies palpitations Eliseo/Lymph Reports no additional complaints Aller/Immun Reports no additional complaints Physical exam (Primary Care) Vital Signs: Last Vital Signs Pulse 83 07/22/23 11:44 BP 130/80 07/22/23 12:35 Pulse Ox 97 07/22/23 11:44 Oxygen Delivery Method Room Air 07/22/23 11:44 BMI result Body Mass Index 39.5 Tobacco/Smoking Status: Tobacco use Status Tobacco use date assessed 07/22/23 07/22/23 11:51 Patient Tobacco Use Status Never used Tobacco 07/22/23 11:51 e-Cigarette/Vaping Use Never Used 07/22/23 11:51 PHQ-9: PHQ-9 Score PHQ-9: Total score 4 07/22/23 12:48 Depression Screening Interpretation: Negative Thrive Assessment: Date of Thrive Assessment Date Thrive assessed 07/22/23 07/22/23 11:51 Currently or been in a relationship where the following occur: I choose not to answer this question Const General: comfortable and no acute distress Nutritional Appearance: obese Orientation/consciousness: patient oriented x3 [facility] Head: Yes normocephalic and Yes atraumatic Mouth: Normal oral and palatal mucosa present and moist mucous membranes Eyes General: appearance normal, both eyes and all related structures Neck Neck: Yes full ROM, Yes no lymphadenopathy and Yes supple Thyroid: Thyroid normal Chest Breast/axilla palpation: normal palpation of the breasts Resp Effort & Inspection: normal respiratory effort and able to speak in complete sentences Auscultation: clear to auscultation bilaterally Cardio Rate: regular rate Rhythm: regular rhythm Heart sounds: S1 normal heart sound present and S2 normal heart sound present GI Palpation (GI): Soft to palpation, nontender and no guarding Auscultation: normal bowel sounds Neuro General: patient oriented x3, gait normal, tone normal, moves all extremities, no focal motor deficits and CN's II-XI intact bilaterally Extrem General: Yes full ROM, Yes no joint enlargement, Yes no pedal edema and Yes normal gait Assessment and Plan Assessment & Plan (1) Essential hypertension: Code(s): I10 - Essential (primary) hypertension Plan: Blood pressure at goal of less than 130/80. Continue lisinopril 30 mg daily and metoprolol succinate ER 25 mg at night. Reinforced importance of following a low sodium diet, getting regular exercise, and lowering stress levels. See nurse navigator in a week to check blood pressure again, bring own blood pressure monitor to check accuracy of readings Medications: Refilled albuterol sulfate 90 mcg/actuation 1 puff PO Q4H PRN 8.5 grams 1RF shortness of breath or wheezing Coding Level of Care Code Est Pt Level 4 (94980) Diagnoses Essential hypertension I10 Additional Codes KALPESH-7 Assessment Billing - KALPESH-7 Assessment Tool: KALPESH-7 Assessment 99095 ([id number])
[2023-07-22 12:35] VITALS: BP 130/80
== END 2023-07-22 12:48 | disposition home or self-care (01) ==
PROVIDERS: PCP Internal Medicine; Visit Provider Internal Medicine
DX: I10 Essential (primary) hypertension (principal)
CPT/HCPCS: 99214

== ENCOUNTER 2023-10-12 10:16 | Outpatient (REF) | payer BC, SELFPAY ==
--- NOTE | ~2023-10-12 | XR_ITS ---
EXAMINATION: XR SHOULDER, RIGHT CLINICAL INFORMATION: Pain in the right shoulder COMPARISON: None available. TECHNIQUE: Three views of the right shoulder. FINDINGS: Acromioclavicular and nonemergent joint alignments are maintained. No evidence of acute fracture or dislocation. No significant degenerative arthritic changes are noted at the glenohumeral articulation. Minimal degenerative/arthritic changes at the glenohumeral articulation. No soft tissue calcifications. Visualized thorax is unremarkable. XR/XR shoulder RT min 2V IMPRESSION: Minimal degenerative/arthritic changes at the right acromioclavicular articulation. No acute osseous abnormality.
== END 2023-10-12 10:17 | disposition home or self-care (01) ==
LOC: HO.HOSX 10:16
PROVIDERS: Visit Provider Physician Assistant
DX: M77.8 Other enthesopathies, not elsewhere classified (principal)
CPT/HCPCS: 20610; 73030; J1010

== ENCOUNTER 2023-10-12 13:27 | Outpatient (AMB) | payer BC, SELFPAY ==
--- NOTE | 2023-10-12 13:34 | A.OFFVIS_ITS ---
Vital Signs 10/12/23 13:44 Height 5 ft 8 in Weight 260 lb BMI 39.5 Intake Visit Reasons: Right rotator cuff pain Intake Note: Tania a 63 year old female who presents today for an evaluation of right shoulder pain. Patient was last seen in office for her right shoulder on 03/04/20 and an injection was given. Patient reports injection provided her with relief however she is unsure how long of relief it provided her. Currently her pain is located in her shoulder and radiates down her arm to her elbow. She was caring for father which required a lot of heavy lifting. States pain makes it difficult to get comfortable to sleep at night. Limited ROM. She continues to do at home stretches. Finds relief with ibuprofen. Allergies codeine [Codeine] Allergy (Mild, Verified 07/22/23 12:14) HIVES Medication List - Last Reconciled 10/12/23 by Ming Thorne PA-C acetaminophen mg PO albuterol sulfate 90 mcg/actuation 1 puff PO Q4H PRN calcium carbonate (Calcium Antacid) 650 mg PO DAILY cetirizine 10 mg PO BEDTIME cholecalciferol (vitamin D3) 125 mcg PO DAILY fluticasone propionate 50 mcg/actuation 1 spray intranasal DAILY ibuprofen mg PO lisinopril 30 mg PO DAILY melatonin 10 mg PO BEDTIME PRN metoprolol succinate ER 25 mg PO DAILY HPI HPI Right rotator cuff pain: Details: Tania is a 63-year-old female who presents today for an evaluation of right shoulder pain. She was last seen in office for her right shoulder on 03/04/2020 and an injection was given. She claims that the injection gave her relief, although she is unsure of how long the relief lasted. She feels discomfort in her shoulder that radiates down her arm to her elbow. She was doing a lot of hard lifting to take care of her father. She reports difficulty sleeping at night secondary to pain and discomfort. She reports restricted ROM. She is performing stretching exercises at home regularly. She finds relief with ibuprofen. She reports pain has become worse over the last 6 months. [facility] Medical History (Updated 10/12/23 @ 15:24 by Ming Thorne PA-C) Surgical menopause Family history of malignant melanoma Right shoulder pain Uterine fibroid Osteoarthritis of spine Seasonal allergies Essential hypertension Surgical History History of removal of nevus History of back surgery History of endometrial biopsy History of total abdominal hysterectomy and bilateral salpingo-oophorectomy Family History Father No problems noted. Mother Epilepsy Lupus Maternal Grandfather Asthma Maternal Grandmother Heart disease Paternal Grandfather No problems noted. Paternal Grandmother Stroke Dementia Diabetes mellitus Brother No problems noted. Son No problems noted. 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 Sexual orientation: Straight/Heterosexual Gender identity: Female Cognitive needs: No Hearing needs: No Vision needs: Yes Review of Systems Const All systems reviewed & are unremarkable except as noted in HPI and below Physical Exam Vital Signs: BMI result Body Mass Index 39.5 Const General: cooperative, healthy appearing, comfortable and no acute distress Orientation/consciousness: patient oriented x3 Neck Neck: Yes normal visual inspection and Yes no JVD Chest Chest palpation & inspection: normal inspection of the chest Resp Effort & Inspection: normal respiratory effort Auscultation: clear to auscultation bilaterally, crackles (no), rales (no), rhonchi (no) and wheezes (no) Cardio Jugular venous distension: no JVD Rate: regular rate Rhythm: regular rhythm Heart sounds: S1 normal heart sound present, S2 normal heart sound present, Murmur heart sound present (no) and Rub heart sound present (no) Peripheral pulses: Peripheral pulses 2+ throughout Neuro General: patient oriented x3 Extrem Other: Right shoulder: Normal to inspection. Diffuse Swelling and tenderness over the proximal humerus which extends down the arm. Anterior deltoid sensation intact. Elbow and wrist ROM intact. NVI. Positive Bonds sign. General: Yes normal to inspection, Yes no pedal edema and Yes no calf tenderness Psych Appearance: grossly normal Mental Status: mental status grossly normal Speech and movement: Normal speech and movement present Office Procedures Joint Injection/Drain Joint Injection/Drain Primary Site: right shoulder Prep: site was prepped using aseptic technique, ethochloride spray was applied and injection warnings given Injected: 80 mg of, DepoMedrol, with 8 mL of, 1% plain lidocaine and in the subcromial space Approach Used: posterolateral Procedure: The patient tolerated the procedure well and there was some relief with the local anesthesia Coding 78510 - Glenohumeral/Tronchanteric Bursa/Intraarticular Procedure code (CPT) selection complete Results Reviewed Results Reviewed: Xrays were obtained in the office today and personally reviewed by me of the right shoulder show type 2 acromion Assessment & Plan Assessment & Plan (1) Right shoulder tendinitis: Code(s): M77.8 - Other enthesopathies, not elsewhere classified Category: Medical Plan We are going to send her to physical therapy for her right shoulder. We discussed options today, which include steroid injection. The patient did consent to move forward with the right shoulder injection, which was tolerated well. I recommended rest, ice, and elevation and OTC anti-inflammatories as needed for discomfort. If symptoms persist over the next 6-8 weeks, they will contact the office, otherwise as needed. Orders: Orders XR shoulder RT min 2V Today M25.511 - Pain in right shoulder Patient Instructions: Scribed for Ming Thorne PA-C, by Jen Ga medical claims processor, on 10/12/2023 at 1:45 PM DORIE. Ming Carrero PA-C, have personally reviewed and agree with the information entered by the scribe. Coding Level of Care Code Est Pt Level 3 (74142) Diagnoses Right shoulder tendinitis M77.8 CPT Codes Coding - Joint 7: 63055 - Glenohumeral/Tronchanteric Bursa/Intraarticular ([id number])
[2023-10-12 13:44] VITALS: BMI 39.5
== END 2023-10-12 15:26 | disposition home or self-care (01) ==
PROVIDERS: PCP Internal Medicine; Visit Provider Physician Assistant
DX: M77.8 Other enthesopathies, not elsewhere classified (principal)
CPT/HCPCS: 20610; 99213

== ENCOUNTER 2023-12-21 10:57 | Outpatient (REF) | payer BC, OTHER, SELFPAY ==
--- NOTE | ~2023-12-21 | MM_ITS ---
EXAMINATION: MM SCREENING DIGITAL BREAST TOMOSYNTHESIS, BILATERAL CLINICAL INFORMATION: Screening. Asymptomatic. COMPARISON: Mammography: Comparison is made with available priors TECHNIQUE: Digital breast mammography with tomosynthesis is performed in both the craniocaudal and mediolateral oblique views along with computer-aided detection (CAD). FINDINGS: There are scattered areas of fibroglandular density (ACR BI-RADS breast composition Category b). There are no significant masses, abnormal calcifications, or other abnormalities. MM/MM tomosynthesis screening BI IMPRESSION: No mammographic evidence of malignancy. ASSESSMENT: BI-RADS BI-RADS 1 - Negative RECOMMENDATION: Routine annual mammography screening. 1 year F/U This examination should not preclude the clinical evaluation of a suspicious palpable abnormality. This patient's information was entered into a reminder system with a target due date for their next mammogram. Electronically signed by: Maria M Diehl DO 01/02/2024 12:42 PM EDT
== END 2023-12-21 10:58 | disposition home or self-care (01) ==
LOC: HO.MAMMO 10:57
PROVIDERS: Absent Provider Obstetrics & Gynecology; PCP Internal Medicine; Visit Provider Internal Medicine
DX: Z12.31 Encounter for screening mammogram for malignant neoplasm of breast (principal)
CPT/HCPCS: 77063; 77067

== ENCOUNTER → 2023-12-21 11:15 | Outpatient (BNV) | payer BC, OTHER, SELFPAY | PROVIDERS: Absent Provider Obstetrics & Gynecology; PCP Internal Medicine; Visit Provider Internal Medicine | DX: Z12.31 Encounter for screening mammogram for malignant neoplasm of breast (principal) | CPT/HCPCS: 77063; 77067 ==

== ENCOUNTER 2024-02-03 12:41 | Outpatient (RCR) | payer BC, OTHER, SELFPAY ==
--- NOTE | 2023-12-06 14:09 | MHC.PT.EP ---
[facility] [place] Office [place] Office [place] Office [address] [phone] F: [phone] F: [phone] F: [phone] F: [phone] Physical Therapy Plan of Care Date of Evaluation: 12/06/23 Date of Surgery: NA Diagnosis: R SHOULDER TENDONITIS Assessment: Pt IS 63 YO F REFERRED TO PT FROM [facility] (JEANNINE) WITH R SHOULDER TENDONITIS. REPORTS THIS IS A CHRONIC ISSUE. HAD CORTISONE INJECTION WITH ORTOO WITHOUT RELIEF. PRESENTS WITH POOR POSTURE, LIMITED END ROM, RC WEAKNESS, +MODIFIED IMPINGEMENT. SHOULD BENEFIT FROM PT TO ADDRESS THESE ISSUES. OF NOTE, PER ORTHO NOTE XRAY +TYPE 2 ACROMION Frequency and Duration: The patient will be seen 2X/WK X 6 WKS Short Term Goals: 1. INCREASED POSTURE AWARENESS AND AWARENESS SHOULDER CARE 2. 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 I HEP WITH DCEX PLAN 2. DECREASED R SHLDER PAIN AT LEAST 50% WITH ADLS Treatment Plan: Modalities to reduce pain, spasms and effusion. Manual therapy to restore motion and function. Therapeutic exercise to improve strength and flexibility. Neuromuscular re-education for posture and balance. Therapeutic activities to return to functional activities of daily living. Electronically signed by: LEROY YU PT Please sign and return to therapist. Thank you for your referral.
--- NOTE | 2024-03-13 11:26 | MHC.PT.DC ---
[facility] [place] Office [place] Office [place] Office [address]ique [address] [phone] F: [phone] F: [phone] F: [phone] F: [phone] Physical Therapy Discharge Report Diagnosis: R SHOULDER TENDONITIS Date of Surgery: NA Date of Evaluation: 12/06/23 Date of Discharge: 03/13/24 Treatments to Date: 8 Cancellations to Date: No Shows to Date: Discharge Status: Improved Function Independent with HEP Patient Elected to Stop Discharge Summary: Pt WAS SUPPOSED TO BE DISCHARGED TODAY BUT CONTINUES WITH PAIN WITH CERTAIN MOVEMENTS R SHLDER (LIKE HAS TO MOVE SHLDER TO PUT IT INTO GOOD POSITION TO MOVE IT THROUGH ROM) TO TRY TO KEEP SHLDER TAPED, WATCH POSTURE, PAINFREE USE/EX X 2 WKS WITH FU TO REV GOALS. OF NOTE HAD CORTISONE INJECTION IN SEPTEMBER WITHOUT SIGNIF RELIEF, TYPE 2 ACROMION. IF BETTER, DC WITH HOME PROG, IF CONT PX CONT WITH ST WORK, CLOSED CHAIN PROGRESSION. Pt CANCELLED LAST APPT. PER PROSTHETIC MAKEUP DESIGNER NOTE, FEELING BETTER AND WILL CONTINUE WITH AQUA THERAPY Electronically signed by: LEROY YU PT Please sign and return to therapist. Thank you for your referral.
== END 2024-03-13 11:26 | disposition home or self-care (01) ==
LOC: HO.PT 12:41
PROVIDERS: PCP Internal Medicine; Visit Provider Physician Assistant
DX: M77.8 Other enthesopathies, not elsewhere classified (principal)
CPT/HCPCS: 97110; 97140; 97161; 97530; 97535

== ENCOUNTER 2024-03-20 06:49 | Outpatient (REF) | payer BC, OTHER, SELFPAY ==
[2024-03-20 07:33] LABS: Alanine Aminotransferase 29 U/L (0-31); Albumin Level 4.3 g/dL (3.5-5.0); Alkaline Phosphatase 72 U/L (39-117); Anion Gap 10 (12-20); Aspartate Amino Transferase 32 U/L (5-31); Bilirubin Total 0.8 mg/dL (0.0-1.0); Blood Urea Nitrogen 21 mg/dL (9-16); Calcium 9.5 mg/dL (8.4-10.2); Carbon Dioxide 30 mmol/L (22-29); Chloride 107 mmol/L (96-108); Cholesterol 187 mg/dL (<200); Estimated Glomerular Filt Rate > 60; Glucose Fasting 110 mg/dL (60-99); HDL Cholesterol 49 mg/dL (>40); LDL Cholesterol Calculated 96 mg/dL (<100); Potassium 5.1 mmol/L (3.3-5.1); Sodium 142 mmol/L (135-145); Total Protein 7.3 g/dL (6.5-8.0); Triglycerides 210 mg/dL (<150)
[2024-03-20 07:52] LABS: Vitamin D 25-OH Total 39.1 ng/mL (>30)
== END 2024-03-20 06:50 | disposition home or self-care (01) ==
LOC: HO.LAB 06:49
PROVIDERS: PCP Internal Medicine; Visit Provider Internal Medicine
DX: I10 Essential (primary) hypertension (principal); R73.01 Impaired fasting glucose; Z13.220 Encounter for screening for lipoid disorders; Z78.0 Asymptomatic menopausal state; R74.8 Abnormal levels of other serum enzymes
CPT/HCPCS: 36415; 80053; 80061; 82306

== ENCOUNTER 2024-03-26 12:24 | Outpatient (AMB) | payer OTHER, SELFPAY ==
[2024-03-26 13:05] VITALS: BP 122/82; PULSE 97; O2SAT 99; BMI 41.0
--- NOTE | 2024-03-26 13:05 | A.OFFPC_ITS ---
Vital Signs 03/26/24 13:05 Height 5 ft 8 in Weight 270 lb BMI 41.0 BP 122/82 Blood Pressure Location Rt brachial Position Sitting Pulse 97 Pulse Source Pulse Oximeter Pulse Oximetry (%) 99 Oxygen Delivery Method Room Air Intake Visit Reasons: Annual PE Intake Note: Pt is here today for her PE: Last mammogram 12/21/23, colonoscopy 07/03/15 Allergies codeine [Codeine] Allergy (Mild, Verified 03/26/24 13:36) HIVES Medication List - Last Reconciled 03/26/24 by Tammie Hamilton MD acetaminophen mg PO albuterol sulfate 90 mcg/actuation 1 puff PO Q4H PRN cetirizine 10 mg PO BEDTIME fluticasone propionate 50 mcg/actuation 1 spray intranasal DAILY ibuprofen mg PO lisinopril 30 mg PO DAILY magnesium 250 mg PO DAILY metoprolol succinate ER 25 mg PO DAILY multivitamin with minerals 1 cap PO DAILY Saccharomyces boulardii (Daily Probiotic (S. boulardii)) 250 mg PO BID Tobacco use date assessed: 03/26/24 Dental Screening Dental Screen Date: 03/26/24 Did you have a dental visit in the last 12 months?: Yes Did you have a dental problem in the last 6 months where you did not have access to dental care?: No Was dental information given to patient?: Patient has dentist HPI Annual PE HPI Details 63-year-old lady past medical history si gnificant for osteoarthritis, and hypertension, here today for a physical exam. She is up-to-date with her screening mammogram, last done 12/21/23 with benign findings and is up-to-date with her colon cancer screening with last colonoscopy done 07/03/[address] Santizo with benign findings, repeat due again in 2025. No longer gets cervical cancer screenings, had tablets so in 2019 due to uterine fibroids. Patient states that she has been doing regular aquatic exercises and has been mindful of what she eats, still not able to lose weight , instead has been gaiining. Needs a referral to see a new acoustical engineer, has an appointment to see Dr. Jett ,. [facility] Medical History (Updated 03/26/24 @ 15:23 by Tammie Hamilton MD) Impaired fasting glucose Hypertriglyceridemia Plantar fasciitis, bilateral Morbid obesity with BMI of 40.0-44.9, adult Surgical menopause Family history of malignant melanoma Right shoulder pain Uterine fibroid Osteoarthritis of spine Seasonal allergies Essential hypertension Surgical History History of removal of nevus History of back surgery History of endometrial biopsy History of total abdominal hysterectomy and bilateral salpingo-oophorectomy Family History Father No problems noted. Mother Epilepsy Lupus Maternal Grandfather Asthma Maternal Grandmother Heart disease Paternal Grandfather No problems noted. Paternal Grandmother Stroke Dementia Diabetes mellitus Brother No problems noted. Son No problems noted. 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 1. Little interest or pleasure in doing things: not at all 2. Feeling down, depressed, or hopeless: not at all 3. Trouble falling or staying asleep, or sleeping too much: not at all 4. Feeling tired or having little energy: not at all 5. Poor appetite or overeating: not at all 6. Feeling bad about yourself - or that you are a failure or have let yourself or your family down: not at all 7. Trouble concentrating on things, such as reading the newspaper or watching television: not at all 8. Moving or speaking so slowly that other people could have noticed. Or the opposite - being so fidgety or restless that you have been moving around a lot more than usual: not at all 9. Thoughts that you would be better off or of hurting yourself in some way: not at all Total score: 0 Depression Screening Interpretation: Negative Depression Screening Done: Yes 51756 - PHQ-9 Billing: Yes Source: Developed by Drs. Saravanan Gonzales, Sol Thompson, Alberto Killian and colleagues, with an educational gerardo from [employer]. Thrive Questionnaire Date Thrive assessed: 03/23/24 I am a: Patient What is your living situation today?: I have a steady place to live Within the past 12 months, did the food you bought not last and you didn't have the money to get more?: Never true Within the past 12 months, did you worry whether your food would run out before you got money to buy more?: Never true Do you have trouble paying for medicines?: No Do you have trouble getting transportation to medical appointments?: No Do you have trouble paying your heating and electricity bill?: No Do you have trouble taking care of your child, family member or friend?: No Do you have trouble with day-to-day activities such as bathing, preparing meals, shopping, managing finances, etc.?: No Are you currently unemployed and looking for a job?: No Are you interested in more education?: No Please select the resources that you would like help with: None Currently or been in a relationship where the following occur: No concerns reported THRIVE Score: 0 AUDIT C Alcohol Use Questionnaire (AUDIT-C) 1. How often do you have a drink containing alcohol?: 2-4 times a month 2. How many drinks containing alcohol do you have on a typical day when you are drinking?: 1 or 2 3. How often do you have six or more drinks on one occasion?: Never Total Score: 2 KALPESH-7 AMB Questionnaire KALPESH-7 Date KALPESH - 7 assessed: 03/26/24 Feeling nervous, anxious, or on edge: 0 = Not at all Not being able to stop or control worryin = Not at all Worrying too much about different things: 0 = Not at all Trouble relaxin = Not at all Being so restless that it is hard to sit still: 0 = Not at all Becoming easily annoyed or irritable: 0 = Not at all Feeling afraid as if something awful might happen: 0 = Not at all Total KALPESH-7 score (0-4 normal; 5-9 mild; 10-14 moderate; 15-21 severe): 0 Source: Developed by Drs. Saravanan Gonzales, Sol Thompson, Alberto Killian and colleagues, with an educational gerardo from [employer]. KALPESH-7 Assessment Billing KALPESH-7 Assessment Tool: KALPESH-7 Assessment 65462 Review of Systems Const Denies fatigue, Denies fever(s), Denies headache(s) and Denies weakness Eyes Details: [facility] eye care Denies change in vision ENT Details: dental prophylaxis q 6 months Denies dizziness and Denies headache(s) Card Denies chest pain, Denies lightheadedness, Denies palpitations and Denies dyspnea Resp Denies chest congestion, Denies cough and Denies dyspnea GI Denies abdominal pain, Denies change in bowel habits and Denies heartburn Denies urinary frequency, Denies dysuria and Denies urinary urgency Musc Denies arthralgias, Denies joint swelling and Reports stiffness Skin/Breast Denies breast pain, Denies breast mass and Denies rash Neuro Denies dizziness, Denies headache(s) and Denies weakness Psych Reports no additional complaints Endo Denies fatigue, Denies polydipsia, Denies polyuria and Denies palpitations Eliseo/Lymph Reports no additional complaints Aller/Immun Reports no additional complaints Physical exam (Primary Care) Vital Signs: Last Vital Signs Pulse 97 03/26/24 13:05 BP 122/82 03/26/24 13:05 Pulse Ox 99 03/26/24 13:05 Oxygen Delivery Method Room Air 03/26/24 13:05 BMI result Body Mass Index 41.0 Tobacco/Smoking Status: Tobacco use Status Tobacco use date assessed 03/26/24 03/26/24 13:08 Patient Tobacco Use Status Never used Tobacco 03/26/24 13:08 e-Cigarette/Vaping Use Never Used 03/26/24 13:08 PHQ-9: PHQ-9 Score PHQ-9: Total score 0 03/26/24 15:27 Depression Screening Interpretation: Negative Thrive Assessment: Date of Thrive Assessment Date Thrive assessed 03/23/24 03/26/24 13:08 Currently or been in a relationship where the following occur: No concerns reported Advance Care Planning discussion: Completed/Scanned Date of discussion: 03/26/24 Who was present: Patient Forms completed: Health Care Proxy Time spent: 16-45 minutes Actual minutes spent: 2 Const General: comfortable and no acute distress Orientation/consciousness: patient oriented x3 HENMT Head: Yes normocephalic and Yes atraumatic Mouth: Normal oral and palatal mucosa present and moist mucous membranes Eyes General: appearance normal, both eyes and all related structures Neck Neck: Yes full ROM, Yes no lymphadenopathy and Yes supple Thyroid: Thyroid normal Chest Breast/axilla palpation: normal palpation of the breasts Resp Effort & Inspection: normal respiratory effort and able to speak in complete sentences Auscultation: clear to auscultation bilaterally Cardio Rate: regular rate Rhythm: regular rhythm Heart sounds: S1 normal heart sound present and S2 normal heart sound present GI Palpation (GI): Soft to palpation, nontender and no guarding Auscultation: normal bowel sounds General: Yes no CVA tenderness Back/Spine/Pelvis Back: no CVA tenderness and No back tenderness Skin General skin exam: no rashes or lesions noted Neuro General: patient oriented x3, gait normal, tone normal, moves all extremities, no focal motor deficits and CN's II-XI intact bilaterally Extrem General: Yes full ROM, Yes no joint enlargement, Yes no pedal edema and Yes normal gait Psych Appearance: grossly normal and well kempt Mental Status: mental status grossly normal Speech and movement: Normal speech and movement present Affect: normal affect Results Reviewed Results Reviewed: Name: Tania Moss Age/Sex: 63/F : 1960 Unit#: [id number] Attend Dr: Tammie Hamilton MD Re03/20/24 Status: DEP [facility] SPEC : [id number] AUDREY: 03/20/24 STATUS: COMP REQ : [id number] RECD: 03/20/[address]: Tammie Hamilton MD COMP: 03/20/24 ENTERED: 03/20/[address]: ORDERED: CMP Fast, Lipid Panel, Vitamin D 25-OH Test Result Flag Reference Sodium 142 135-145 mmol/L Potassium 5.1 3.3-5.1 mmol/L CL 107 96-108 mmol/L CO2 30 H 22-29 mmol/L Gap 10 L 12-20 BUN 21 H 9-16 mg/dL Creat 0.82 0.5-1.4 mg/dL eGFR > 60 Chronic Kidney Disease: Estimated GFR < 60 mL/min/1.73m2 Severe Kidney Disease: Estimated GFR < 15 mL/min/1.73m2 FBS 110 H 60-99 mg/dL A fasting glucose from 100-125 mg/dl is considered impaired (pre-diabetes). CA 9.5 8.4-10.2 mg/dL Total Bili 0.8 0.0-1.0 mg/dL AST (GOT) 32 H 5-31 U/L ALT (GPT) 29 0-31 U/L Protein, Total 7.3 6.5-8.0 g/dL Alb 4.3 3.5-5.0 g/dL Triglyceride 210 H <150 mg/dL Desirable Triglyceride: less than 150 mg/dL Borderline High Triglyceride 150-199 mg/dL High Triglyceride: 200-499 mg/dL Very High Triglyceride: greater than or equal to 5OO mg/dL Cholesterol 187 <200 mg/dL Desirable Cholesterol: less than 200 mg/dL Borderline High Cholesterol: 200-239 mg/dL High Cholesterol: greater than 239 mg/dL LDL Calculated 96 <100 mg/dL Desirable LDL: less than 100 mg/dL Near Optimal/Above Optimal LDL: 110-129 mg/dL Borderline High LDL: 130-159 mg/dL High LDL: 160-189 mg/dL Very High LDL: greater than or equal to 190 mg/dL HDL 49 >40 mg/dL Desirable HDL: greater than 40 mg/dL Note: This HDL assay may give artificially low results in patients with liver disease. Alk Phos 72 39-117 U/L Vit D 25-OH Tot 39.1 >30 ng/mL Health Based Reference Values* < 20 ng/mL Deficient 20-30 ng/mL Insufficient > 30 ng/mL Sufficient *Maeve THACKER. N Engl J Med. 2007;357:266-280 Care must be taken in interpreting Vitamin D results from different laboratories and methodologies. Published data demonstrated that results from patients undergoing hemodialysis may show a negative bias when tested with various automated 25-OH vitamin D assays when compared to LC-MS/MS. When testing samples from patients whose predominant fo rm of Vitamin D is Vitamin D2, such as patients receiving Vitamin D2 supplementation, results that are subtherapeutic should be confirmed with another method such as LC-MS/MS. Coding Level of Care Code Est Pt Prev Care 40-64y(09966) Diagnoses Annual visit for general adult medical examination with abnormal findings Z00.01 Plantar fasciitis, bilateral M72.2 Essential hypertension I10 Morbid obesity with BMI of 40.0-44.9, adult E66.01; Z68.41 Encounter for counseling regarding advance directives Z71.89 Hypertriglyceridemia E78.1 Impaired fasting glucose R73.01 Additional Codes KALPESH-7 Assessment Billing - KALPESH-7 Assessment Tool: KALPESH-7 Assessment 04425 ([id number]) PHQ-9 - 01319 - PHQ-9 Billing: Yes ([id number]) Vital Signs *Quality* - Advance Care Planning discussion: Completed/Scanned ([id number]) Vital Signs *Quality* - Time spent: 16-45 minutes ([id number]) Assessment & Plan Assessment & Plan (1) Annual visit for general adult medical examination with abnormal findings: Code(s): Z00.01 - Encounter for general adult medical examination with abnormal findings Plan: Reviewed recent fasting lab results with patient which showed elevated triglycerides and fasting glucose in the prediabetic range. Up-to-date with her colon cancer screening, and mammogram up-to-date with her RSV vaccine, shingles vaccine and Tdap but has not yet had her COVID booster and does not get flu shots. (2) Plantar fasciitis, bilateral: Code(s): M72.2 - Plantar fascial fibromatosis Category: Medical Plan: Has appointment already scheduled with Dr. Bernice Jett at [facility], referral sent (3) Essential hypertension: Code(s): I10 - Essential (primary) hypertension Category: Medical Plan: Blood pressure at goal of less than 130/80. Continue with current medication. Reinforced importance of following a low sodium diet, getting regular exercise, and lowering stress levels. (4) Morbid obesity with BMI of 40.0-44.9, adult: Code(s): E66.01 - Morbid (severe) obesity due to excess calories; Z68.41 - Body mass index [BMI] 40.0-44.9, adult Category: Medical Plan: Referred to nurse nutrition for dietary guidance continue doing aquatic exercise (5) Encounter for counseling regarding advance directives: Code(s): Z71.89 - Other specified counseling Plan: Initiated the conversation about Advanced Directives. Advanced Directives help patients prepare for current and future decisions about their medical treatment and place of care. Discussed with patient that it is a process where a patients current condition and prognosis are reviewed, their wishes for information regarding their illness are elicited, and likely medical dilemmas are presented and options discussed. Healthcare proxy form completed today (6) Hypertriglyceridemia: Code(s): E78.1 - Pure hyperglyceridemia Category: Medical Plan: Reinforced importance of following a low-cholesterol diet , referred to nurse navigator for dietary guidance (7) Impaired fasting glucose: Code(s): R73.01 - Impaired fasting glucose Category: Medical Plan: Your previous fasting blood sugars were elevated above 100 mg/dL. Impaired glucose metabolism increases the risk for developing diabetes mellitus type 2, as well as heart attack and stroke later on. Lifestyle changes that promotes weight loss, healthy eating habits, and regular exercise are important, and can prevent the progression to diabetes Orders: Orders Hemoglobin A1c 09/18/24 E66.01 - Morbid (severe) obesity due to excess calories, E78.1 - Pure hyperglyceridemia, I10 - Essential (primary) hypertension, Z00.01 - Encounter for general adult medical examination with abnormal findings, Z68.41 - Body mass index [BMI] 40.0-44.9, adult, Z71.89 - Other specified counseling Alanine Aminotransferase 09/18/24 E66.01 - Morbid (severe) obesity due to excess calories, E78.1 - Pure hyperglyceridemia, I10 - Essential (primary) hypertension, Z00.01 - Encounter for general adult medical examination with abnormal findings, Z68.41 - Body mass index [BMI] 40.0-44.9, adult, Z71.89 - Other specified counseling Aspartate Amino Transferase 09/18/24 E66.01 - Morbid (severe) obesity due to excess calories, E78.1 - Pure hyperglyceridemia, I10 - Essential (primary) hypertension, Z00.01 - Encounter for general adult medical examination with abnormal findings, Z68.41 - Body mass index [BMI] 40.0-44.9, adult, Z71.89 - Other specified counseling Basic Metabolic Panel Fasting 09/18/24 E66.01 - Morbid (severe) obesity due to excess calories, E78.1 - Pure hyperglyceridemia, I10 - Essential (primary) hypertension, Z00.01 - Encounter for general adult medical examination with abnormal findings, Z68.41 - Body mass index [BMI] 40.0-44.9, adult, Z71.89 - Other specified counseling Lipid Panel 09/18/24 E66.01 - Morbid (severe) obesity due to excess calories, E78.1 - Pure hyperglyceridemia, I10 - Essential (primary) hypertension, Z00.01 - Encounter for general adult medical examination with abnormal findings, Z68.41 - Body mass index [BMI] 40.0-44.9, adult, Z71.89 - Other specified counseling Referrals Podiatry Referral M72.2 - Plantar fascial fibromatosis
== END 2024-03-26 14:13 | disposition home or self-care (01) ==
PROVIDERS: PCP Internal Medicine; Visit Provider Internal Medicine
DX: Z00.01 Encounter for general adult medical examination with abnormal findings (principal); M72.2 Plantar fascial fibromatosis; I10 Essential (primary) hypertension; E66.01 Morbid (severe) obesity due to excess calories; Z68.41 Body mass index [BMI] 40.0-44.9, adult; Z71.89 Other specified counseling; E78.1 Pure hyperglyceridemia; R73.01 Impaired fasting glucose; Z00.00 Encounter for general adult medical examination without abnormal findings

== ENCOUNTER → 2024-03-26 12:24 | Outpatient (BNVA) | payer OTHER, SELFPAY | PROVIDERS: PCP Internal Medicine; Visit Provider Internal Medicine | DX: Z00.01 Encounter for general adult medical examination with abnormal findings (principal); M72.2 Plantar fascial fibromatosis; I10 Essential (primary) hypertension; E66.01 Morbid (severe) obesity due to excess calories; E78.1 Pure hyperglyceridemia; R73.01 Impaired fasting glucose; Z68.41 Body mass index [BMI] 40.0-44.9, adult; Z71.89 Other specified counseling | CPT/HCPCS: 96127; 99497 ==

== ENCOUNTER 2024-08-08 09:00 | Outpatient (RCR) | payer OTHER, SELFPAY ==
--- NOTE | 2024-07-12 09:22 | MHC.PT.EP ---
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 Impairments include pain, decreased range of motion, decreased strength, impaired functional mobility, impaired postural awareness, and altered ambulation mechanics. pt is a good candidate for skilled PT due to age, potential remediation of impairments, typical disease/condition progression and prognosis, comorbidities, and motivation. pt would benefit from skilled PT intervention to provide a tailored strengthening and stretching exercise program, functional training, gait training, postural re-training, neuromuscular re-education, modalities as needed for pain, equipment safety demonstration. Frequency and Duration: The patient will be seen 2x/wk for 4 wks Short Term Goals: pt will be I w/ HEP to promote self-management of condition. pt improve B ankle DF (gastroc and soleus bias) to at least 10* to promote ease in anterior tibial translation w/ ambulation. Lieutenant/Deputy Goals: pt will report <2/10 L ankle pain w/ navigating 12 stairs using railing to promote ease in accessing home/community. pt will improve L great toe extension to at least 40* to promote improved toe off during ambulation on even ground. Treatment Plan: Modalities to reduce pain, spasms and effusion. Manual therapy to restore motion and function. Therapeutic exercise to improve strength and flexibility. Neuromuscular re-education for posture and balance. Therapeutic activities to return to functional activities of daily living. Electronically signed by: Nicole Price PT, DPT Please sign and return to therapist. Thank you for your referral.
--- NOTE | 2024-09-04 10:28 | MHC.PT.DC ---
[facility] [place] Office [place] Office [place] Office [address] Angelique Calixto [address] [phone] F: [phone] F: [phone] F: [phone] F: [phone] Physical Therapy Discharge Report Diagnosis: calcaneal spur, interstitial myositis, plantar fasciitis, calcaneal spur (RL) Date of Surgery: N/A Date of Evaluation: 07/12/24 Date of Discharge: 09/04/24 Treatments to Date: 7 Cancellations to Date: 2 No Shows to Date: 0 Discharge Status: Improved Function Independent with HEP Discharge Summary: The patient was overall reporting improvement in her foot and ankle symptoms. Per last treatment note on 08/08/24: pt mentioned US and ktape were very helpful. Readministered today. pt requested to take pictures of the ktape w/ her personal phone which was done so she can tape herself when she's in [place]. She feels overall she is less wobbly when she walks and can handle uneven surfaces better. She has better calcaneal varus on her L but R still remains in neutral throughout movement. Continue w/ calf strengthening. She is discharged from this physical therapy plan of care. Electronically signed by: Nicole Price PT, DPT Please sign and return to therapist. Thank you for your referral.
== END 2024-09-04 10:28 | disposition home or self-care (01) ==
LOC: HO.PT 09:00
PROVIDERS: PCP Internal Medicine; Visit Provider Internal Medicine
DX: M77.32 Calcaneal spur, left foot (principal); M77.52 Other enthesopathy of left foot and ankle; M60.1 Interstitial myositis; M72.2 Plantar fascial fibromatosis
CPT/HCPCS: 97035; 97110; 97140; 97162; 97530

== ENCOUNTER 2024-09-28 07:01 | Outpatient (REF) | payer OTHER, SELFPAY ==
--- OUTSIDE RECORDS SUMMARY | 2024-09-28 07:04 | XMS_ITS | Patient Health Record ---
[facility] Organization [facility] Address [address] [place] [address] Care Team Providers Care Powder Monkey Name Role Phone Alfonso FUNES, Tammie Shearer Primary Care Provider Un available Bernice Jett Unavailable [phone] Allergies Allergen (clinical drug ingredient) Drug/Non Drug Allergy documented on EMR Reaction Allergy Type Onset Date Status codeine Codeine Unknown Drug Allergy Active Reason For Referral Diagnosis 1 Pain in unspecified foot (M79.673) Referring Provider First Name Tammie Harris Referring Provider Last Name Alfonso Referring Provider Speciality Internal M edicine Referred Organization [facility] Referred Provider Bernice Jett Referred Address [address] [facility],[place], [place],[address], Referred Provider Specialty Podiatry Referral Priority Routine Medications Medication SIG (Take, Route, Frequency, Duration) Notes Start Date End Date Status Multivitamin Active ZyrTEC Active Metoprolol Succinate Active Lisinopril Active Physical Therapy . . . Evaluate and Jeronimo at for plantar fasciitis Left M72.2; Duration: 45 days 06/14/2024 Not-Anand ing Physical Therapy . . . 2-3x/week; Durat ion: 3-4 weeks 06/06/2024 Not-Taking Cranberry Active Tylenol Active Magnesium Active Albuterol Active Flonase Active Probiotic Active Social History Tobacco Use: Social History Observation Description Date Details (start date - stop date) Never Smoker NA - NA Tobacco use other than smoking: Question Answer Notes Are you an other tobacco user? No Tobacco Control (Standard) Question Answer Notes Tobacco use: Nonsmoker Additional Findings: Tobacco non-user Current no nsmoker AUDIT-C (Standard) Question Answer Notes Did you have a drink contain ing alcohol in the past year? Yes How often did you have a dri nk containing alcohol in the past year? Never (0 point) How many drinks did you have on a typical day when you were drinking in the past year? 1 or 2 drinks (0 point) How often did you have six o r more drinks on one occasion in the past year? Never (0 point) Points 0 Interpretation Negative Problems Problem Type SNOMED Code ICD Code Onset Dates Problem Status W/U Status Risk Notes Problem Plantar fasciitis (276553935) Plantar fasciitis (M72.2) Active confirmed Resistant to previous conservative treatment Problem Plantar fasciitis of left foot (46908978680058 101) Plantar fasciitis of left foot (M72.2) Active confirmed Problem Interstitial myositis (80545716) Interstitial myositis of left foot (M60.172) Active confirmed Vital Signs Blood pressure diastolic 80 mm Hg 08/15/2024 Height 5ft8in in 08/15/2024 Blood pressure systolic 120 mm Hg 08/15/2024 Weight 258 lbs 08/15/2024 BMI 39.22 kg/m2 08/15/2024 Encounters Encounter Location Date Provider Diagnosis [address] [address] 06/06/2024 Bernice Perica Pain in left foot M79.672 ; Plantar fasciitis of left foot M72.2 ; Calcaneal spur, left foot M77.32 ; Interstitial myositis of left foot M60.172 and Bursitis of left foot M77.[address] [address] 08/15/2024 Bernice Perica Calcaneal spur, left foot M77.32 ; Plantar fasciitis M72.2 ; Interstitial myositis of left foot M60.172 ; Bursitis of left foot M77.52 ; Calcaneal spur, right M77.31 and Pain in right foot M79.[address] [address] 05/14/2024 Bernice Kelsia [address] [address] 06/06/2024 Bernice Jett [facility] [place] [address] [place] [address] 06/06/2024 Bernice Jett [facility] [place] [address] [place] [address] 06/14/2024 Bernice Jett [facility] [place] [address] [place] [address] 08/15/2024 Bernice Jett Assessments Encounter Date Diagnosis (ICD Code) Assessment Notes Treatment Notes Treatment Clinical Notes Section Notes 06/06/2024 Pain in left foot (ICD-10 - M79.672) 06/06/2024 Plantar fasciitis of left foot (ICD-10 - M72.2) Patient Educated with: HEEL CORD STRETCHES.pdf (HEEL CORD STRETCHES.pdf ) Patient Educated with: RICE THERAPY.pdf (RICE THERAPY.pdf) 08/15/2024 Calcaneal spur, left foot (ICD-10 - M77.32) 08/15/2024 Plantar fasciitis (ICD-10 - M72.2) Resistant to previous conservative treatment 06/06/2024 Calcaneal spur, left foot (ICD-10 - M77.32) 08/15/2024 Interstitial myositis of left foot (ICD-10 - M60.172) 06/06/2024 Interstitial myositis of left foot (ICD-10 - M60.172) 08/15/2024 Bursitis of left foot (ICD-10 - M77.52) 08/15/2024 Calcaneal spur, right (ICD-10 - M77.31) 06/06/2024 Bursitis of left foot (ICD-10 - M77.52) 08/15/2024 Pain in right foot (ICD-10 - M79.671) 08/15/2024 Other Plan Of Treatment Pending Test Test Name Order Date X ray : Foot, left 3V 06/06/2024 X ray : Foot, right 3V 08/15/2024 Insurance Providers Payer Name Payer Address Payer Phone Subscriber Number Group Number Insured Name Patient Relationship to Insured Coverage Start Date Coverage End Date [facility] [address] [place] [address] [id number] Huber Moss Spouse - patient is the spouse of the insured Medical (General) History Medical History History ICD Code Asthma Back,Hip,and Knee pain Covid 19 HBP Sciatica Sinusitis Warts Surgical History Surgery Date(Month/Year) hysterectomy Herniated disc
[2024-09-28 07:58] LABS: Hemoglobin A1C 148.0737 umol/L; Total Hemoglobin (HGBA1C) 3868.3920 umol/L
[2024-09-28 08:32] LABS: Alanine Aminotransferase 21 U/L (0-31); Anion Gap 12 (12-20); Aspartate Amino Transferase 24 U/L (5-31); Blood Urea Nitrogen 19 mg/dL (9-16); Calcium 8.9 mg/dL (8.4-10.2); Carbon Dioxide 25 mmol/L (22-29); Chloride 107 mmol/L (96-108); Cholesterol 165 mg/dL (<200); Estimated Glomerular Filt Rate > 60; HDL Cholesterol 50 mg/dL (>40); Potassium 4.1 mmol/L (3.3-5.1); Sodium 140 mmol/L (135-145); Triglycerides 160 mg/dL (<150)
== END 2024-09-28 07:02 | disposition home or self-care (01) ==
LOC: HO.LAB 07:01
PROVIDERS: PCP Internal Medicine; Visit Provider Internal Medicine
DX: Z00.01 Encounter for general adult medical examination with abnormal findings (principal); E66.01 Morbid (severe) obesity due to excess calories; Z68.41 Body mass index [BMI] 40.0-44.9, adult; I10 Essential (primary) hypertension; E78.1 Pure hyperglyceridemia; Z71.89 Other specified counseling
CPT/HCPCS: 36415; 80048; 80061; 83036; 84450; 84460

== ENCOUNTER 2024-11-29 11:37 | Outpatient (AMB) | payer OTHER, SELFPAY ==
--- OUTSIDE RECORDS SUMMARY | 2024-10-02 07:00 | XMS_ITS ---
Author Organization [facility] Address [address] [place] [address] Care Team Providers Care Cigarette Seller Name Role Phone Alfonso FUNES, Tammie Sheaerr Primary Care Provider Un available Bernice Jett [phone] Encounters Encounter Location Date Provider Diagnosis [address] [address] 10/02/2024 Bernice Jett Plan Of Treatment No Information Progress Notes * MEME TaniaDOB:1960 (64 yo F)Acc No.[id number]:10/02/2024 Patient: Tania BLOUNT Provider: Sridevi Jett DPM :1960 A ge:64 Y S ex:Female Date:10/02/2024 Address:[address] [place], [place] [id number] Pcp:Jarad Hutchinson Subjective: * Chief Complaints: * * Medical History: Objective: * Vitals: Assessment: Plan: * Treatment: * Images: * The named appointment provid er may or may not be the originator of this progress note, and it is not deemed complete until electronically signed by the appointment provider. Sign off status: Pending * Provider: Sridevi Jett DPM Date: 0 10/02/2024 Generated for Printi ng/Faxing/eTransmitting on: 0 11/29/2024 03:57 PM EDT
--- OUTSIDE RECORDS SUMMARY | 2024-10-09 07:00 | XMS_ITS ---
Author Organization [facility] Address [address] [place] [address] Care Team Providers Care Videotape Operator Name Role Phone Alfonso FUNES, Tammie Shearer Primary Care Provider Un available Bernice Jett [phone] Encounters Encounter Location Date Provider Diagnosis [address] [address] 10/09/2024 Bernice Jett Plan Of Treatment No Information Progress Notes * Florina VALENTINEkamilaDOB:1960 (64 yo F)Acc No.[id number]:10/09/2024 Progress Note Patient: Tania BLOUNT Provider: Sridevi Jett DPM :1960 A ge:64 Y S ex:Female Date:10/09/2024 Address:[address] [place], [place] [id number] Pcp:Jarad Hutchinson Subjective: * Chief Complaints: * * Medical History: Objective: * Vitals: Assessment: Plan: * Treatment: * Images: * The named appointment provid er may or may not be the originator of this progress note, and it is not deemed complete until electronically signed by the appointment provider. Sign off status: Pending * Provider: Sridevi Jett DPM Date: 0 10/09/2024 Generated for Printi ng/Faxing/eTransmitting on: 0 11/29/2024 03:57 PM EDT
--- OUTSIDE RECORDS SUMMARY | 2024-10-16 07:00 | XMS_ITS ---
Author Organization [facility] Address [address] [place] [address] Care Team Providers Care Patternmaker Hand Name Role Phone Alfonso FUNES, Tammie Shearer Primary Care Provider Un available Bernice Jett [phone] Encounters Encounter Location Date Provider Diagnosis [address] [address] 10/16/2024 Bernice Jett Plan Of Treatment No Information Progress Notes * Florina VALENTINEkamilaDOB:1960 (64 yo F)Acc No.[id number]:10/16/2024 Progress Note Patient: Tania BLOUNT Provider: Sridevi Jett DPM :1960 A ge:64 Y S ex:Female Date:10/16/2024 Address:[address] [place], [place] [id number] Pcp:Jarad Hutchinson Subjective: * Chief Complaints: * * Medical History: Objective: * Vitals: Assessment: Plan: * Treatment: * Images: * The named appointment provid er may or may not be the originator of this progress note, and it is not deemed complete until electronically signed by the appointment provider. Sign off status: Pending * Provider: Sridevi Jett DPM Date: 0 10/16/2024 Generated for Printi ng/Faxing/eTransmitting on: 0 11/29/2024 03:57 PM EDT
--- OUTSIDE RECORDS SUMMARY | 2024-10-23 06:00 | XMS_ITS ---
Author Organization [facility] Address [address] [place] [address] Care Team Providers Care Outpatient Coder Name Role Phone Alfonso FUNES, Tammie Shearer Primary Care Provider Un available Bernice Jett [phone] Encounters Encounter Location Date Provider Diagnosis [address] [address] 10/23/2024 Bernice Jett Plan Of Treatment No Information Progress Notes * MEME TaniaDOB:1960 (64 yo F)Acc No.[id number]:10/23/2024 Patient: Tania BLOUNT Provider: Sridevi Jett DPM :1960 A ge:64 Y S ex:Female Date:10/23/2024 Address:[address] [place], [place] [id number] Pcp:Jarad Hutchinson Subjective: * Chief Complaints: * * Medical History: Objective: * Vitals: Assessment: Plan: * Treatment: * Images: * The named appointment provid er may or may not be the originator of this progress note, and it is not deemed complete until electronically signed by the appointment provider. Sign off status: Pending * Provider: Sridevi Jett DPM Date: 0 10/23/2024 Generated for Printi ng/Faxing/eTransmitting on: 0 11/29/2024 03:58 PM EDT
--- OUTSIDE RECORDS SUMMARY | 2024-10-30 06:00 | XMS_ITS ---
Author Organization [facility] Address [address] [place] [address] Care Team Providers Care Asphalt Paving Foreman Name Role Phone Alfonso FUNES, Tammie Shearer Primary Care Provider Un available Bernice Jett [phone] Encounters Encounter Location Date Provider Diagnosis [address] [address] 10/30/2024 Bernice Jett Plan Of Treatment No Information Progress Notes * Florina VALENTINEkamilaDOB:1960 (64 yo F)Acc No.[id number]:10/30/2024 Progress Note Patient: Tania BLOUNT Provider: Sridevi Jett DPM :1960 A ge:64 Y S ex:Female Date:10/30/2024 Address:[address] [place], [place] [id number] Pcp:Jarad Hutchinson Subjective: * Chief Complaints: * * Medical History: Objective: * Vitals: Assessment: Plan: * Treatment: * Images: * The named appointment provid er may or may not be the originator of this progress note, and it is not deemed complete until electronically signed by the appointment provider. Sign off status: Pending * Provider: Sridevi Jett DPM Date: 0 10/30/2024 Generated for Printi ng/Faxing/eTransmitting on: 0 11/29/2024 03:58 PM EDT
[2024-11-29 12:23] VITALS: BP 120/78; PULSE 106; RESP 16; TEMP 36.7; O2SAT 96; BMI 41.0
--- NOTE | 2024-11-29 12:23 | MHC.PC.OV ---
Vital Signs 11/29/24 12:23 Height 5 ft 8 in Weight 270 lb BMI 41.0 BP 120/78 Blood Pressure Location Lt brachial Position Sitting Respiration 16 Pulse 106 H Pulse Source Pulse Oximeter Temp 98.0 F Temp Source Oral Pulse Oximetry (%) 96 Oxygen Delivery Method Room Air Intake Visit Reasons: FU appt, Allergy symptoms and recurrent cough Allergies codeine (Codeine) Allergy (Mild, Verified 11/29/24 12:37) HIVES Medication List - Last Reconciled 11/29/24 by Tammie Hamilton MD acetaminophen mg PO albuterol sulfate 90 mcg/actuation 1 puff PO Q4H PRN cetirizine 10 mg PO BEDTIME fluticasone propionate 50 mcg/actuation 1 spray intranasal DAILY ibuprofen mg PO lisinopril 30 mg PO DAILY magnesium 250 mg PO DAILY metoprolol succinate ER 25 mg PO DAILY multivitamin with minerals 1 cap PO DAILY Saccharomyces boulardii (Daily Probiotic (S. boulardii)) 250 mg PO BID Tobacco use date assessed: 11/29/24 Dental Screening Dental Screen Date: 03/26/24 HPI FU appt HPI Details 64-year-old lady complaining of nasal congestion, and recurrent cough mainly in the mornings when she wakes up. Currently takes cetirizine 10 mg at bedtime as needed and has albuterol inhaler which he takes as needed for cough and bronchospasm which has been helping temporarily. [facility] Medical History Plantar fasciitis of left foot Interstitial myositis of left foot Bursitis of left foot Impaired fasting glucose Hypertriglyceridemia Plantar fasciitis, bilateral Morbid obesity with BMI of 40.0-44.9, adult Surgical menopause Family history of malignant melanoma Right shoulder pain Uterine fibroid Osteoarthritis of spine Seasonal allergies Essential hypertension Surgical History History of removal of nevus History of back surgery History of endometrial biopsy History of total abdominal hysterectomy and bilateral salpingo-oophorectomy Family History Father No problems noted. Mother Epilepsy Lupus Maternal Grandfather Asthma Maternal Grandmother Heart disease Paternal Grandfather No problems noted. Paternal Grandmother Stroke Dementia Diabetes mellitus Brother No problems noted. Son No problems noted. 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 1. Little interest or pleasure in doing things: not at all 2. Feeling down, depressed, or hopeless: not at all 3. Trouble falling or staying asleep, or sleeping too much: not at all 4. Feeling tired or having little energy: not at all 5. Poor appetite or overeating: not at all 6. Feeling bad about yourself - or that you are a failure or have let yourself or your family down: not at all 7. Trouble concentrating on things, such as reading the newspaper or watching television: not at all 8. Moving or speaking so slowly that other people could have noticed. Or the opposite - being so fidgety or restless that you have been moving around a lot more than usual: not at all 9. Thoughts that you would be better off or of hurting yourself in some way: not at all Total score: 0 Depression Screening Interpretation: Negative Depression Screening Done: Yes Source: Developed by Drs. Saravanan Gonzales, Sol Thompson, Alberto Killian and colleagues, with an educational gerardo from [employer]. Thrive Questionnaire Date Thrive assessed: 03/23/24 I am a: Patient What is your living situation today?: I have a steady place to live Within the past 12 months, did the food you bought not last and you didn't have the money to get more?: Never true Within the past 12 months, did you worry whether your food would run out before you got money to buy more?: Never true Do you have trouble paying for medicines?: No Do you have trouble getting transportation to medical appointments?: No Do you have trouble paying your heating and electricity bill?: No Do you have trouble taking care of your child, family member or friend?: No Do you have trouble with day-to-day activities such as bathing, preparing meals, shopping, managing finances, etc.?: No Are you currently unemployed and looking for a job?: No Are you interested in more education?: No Please select the resources that you would like help with: None Currently or been in a relationship where the following occur: No concerns reported THRIVE Score: 0 AUDIT C Alcohol Use Questionnaire (AUDIT-C) 1. How often do you have a drink containing alcohol?: 2-4 times a month 2. How many drinks containing alcohol do you have on a typical day when you are drinking?: 1 or 2 3. How often do you have six or more drinks on one occasion?: Never Total Score: 2 KALPESH-7 AMB Questionnaire KALPESH-7 Date KALPESH - 7 assessed: 03/26/24 Feeling nervous, anxious, or on edge: 0 = Not at all Not being able to stop or control worryin = Not at all Worrying too much about different things: 0 = Not at all Trouble relaxin = Not at all Being so restless that it is hard to sit still: 0 = Not at all Becoming easily annoyed or irritable: 0 = Not at all Feeling afraid as if something awful might happen: 0 = Not at all Total KALPESH-7 score (0-4 normal; 5-9 mild; 10-14 moderate; 15-21 severe): 0 Source: Developed by Drs. Saravanan Gonzales, Sol Thompson, Alberto Killian and colleagues, with an educational gerardo from [employer]. Review of Systems Const Denies fatigue, Denies fever(s), Denies headache(s) and Denies weakness Eyes Details: [facility] eye care Denies change in vision ENT Details: dental prophylaxis q 6 months Denies dizziness and Denies headache(s) Card Denies chest pain, Denies lightheadedness, Denies palpitations and Denies dyspnea Resp Reports as per HPI, Denies chest congestion and Denies dyspnea GI Denies abdominal pain, Denies change in bowel habits and Denies heartburn Denies urinary frequency, Denies dysuria and Denies urinary urgency Musc Denies arthralgias, Denies joint swelling and Reports stiffness Neuro Denies dizziness, Denies headache(s) and Denies weakness Psych Reports no additional complaints Endo Denies fatigue, Denies polydipsia, Denies polyuria and Denies palpitations Eliseo/Lymph Reports no additional complaints Aller/Immun Reports as per HPI Physical exam (Primary Care) Vital Signs: Last Vital Signs Temp 98.0 F 11/29/24 12:23 Pulse 106 H 11/29/24 12:23 Resp 16 11/29/24 12:23 BP 120/78 11/29/24 12:23 Pulse Ox 96 11/29/24 12:23 Oxygen Delivery Method Room Air 11/29/24 12:23 BMI result Body Mass Index 41.0 Tobacco/Smoking Status: Tobacco use Status Tobacco use date assessed 11/29/24 11/29/24 12:26 Patient Tobacco Use Status Never used Tobacco 11/29/24 12:26 e-Cigarette/Vaping Use Never Used 11/29/24 12:26 PHQ-9: PHQ-9 Score PHQ-9: Total score 0 11/29/24 17:44 Depression Screening Interpretation: Negative Thrive Assessment: Date of Thrive Assessment Date Thrive assessed 03/23/24 11/29/24 12:26 Currently or been in a relationship where the following occur: No concerns reported Const General: comfortable and no acute distress Orientation/consciousness: patient oriented x3 HENMT Head: Yes normocephalic Mouth: Normal oral and palatal mucosa present and moist mucous membranes Eyes General: appearance normal, both eyes and all related structures Neck Neck: Yes full ROM, Yes no lymphadenopathy and Yes supple Thyroid: Thyroid normal Resp Effort & Inspection: normal respiratory effort and able to speak in complete sentences Auscultation: clear to auscultation bilaterally Cardio Rate: regular rate Rhythm: regular rhythm Heart sounds: S1 normal heart sound present and S2 normal heart sound present GI Palpation (GI): Soft to palpation, nontender and no guarding Auscultation: normal bowel sounds Skin General skin exam: no rashes or lesions noted Neuro General: patient oriented x3, gait normal, tone normal, moves all extremities, no focal motor deficits and CN's II-XI intact bilaterally Extrem General: Yes full ROM, Yes no joint enlargement, Yes no pedal edema and Yes normal gait Psych Appearance: grossly normal and well kempt Mental Status: mental status grossly normal Speech and movement: Normal speech and movement present Affect: normal affect Coding Level of Care Code Est Pt Level 4 (67208) Diagnoses Seasonal allergies J30.2 Mild intermittent reactive airway disease without complication J45.20 Asthma severity: mild Asthma persistence: intermittent Asthma complication type: uncomplicated Assessment & Plan Assessment & Plan (1) Seasonal allergies: Code(s): J30.2 - Other seasonal allergic rhinitis Category: Medical Plan: Continue cetirizine 10 mg at bedtime, advised to nasal seen in navigation wash once or twice a day as needed. Prescription sent for fluticasone nasal sprays 1 spray per nostril daily (2) Reactive airway disease: Code(s): J45.909 - Unspecified asthma, uncomplicated Qualifiers: Asthma severity: mild Asthma persistence: intermittent Asthma complication type: uncomplicated Qualified Code(s): J45.20 - Mild intermittent asthma, uncomplicated Plan: Continue using albuterol inhaler as needed for episodes of wheezing and bronchospasm Medications: Refilled fluticasone propionate 50 mcg/actuation 1 spray intranasal DAILY 16 grams 3RF albuterol sulfate 90 mcg/actuation 1 puff PO Q4H PRN 8.5 grams 3RF shortness of breath or wheezing
--- OUTSIDE RECORDS SUMMARY | 2024-11-29 15:58 | XMS_ITS | Patient Health Record ---
[facility] Address [address] [place] [address] Care Team Providers Care Human Services Supervisor Name Role Phone Alfonso FUNES, Tammie Shearer Primary Care Provider Un available Bernice Jett Unavailable [phone] Allergies Allergen (clinical drug ingredient) Drug/Non Drug Allergy documented on EMR Reaction Allergy Type Onset Date Status codeine Codeine Unknown Drug Allergy Active Reason For Referral Diagnosis 1 Pain in unspecified foot (M79.673) Referring Provider First Name Tammie Harris Referring Provider Last Name Alfonso Referring Provider Speciality Internal M edicine Referred Organization [facility] Carlos Referred Provider Bernice Jett Referred Address [address] [facility],[place], [place],[address], Referred Provider Specialty Podiatry Referral Priority Routine [...] W/U Status Risk Notes Problem Plantar fasciitis (361705147) Plantar fasciitis (M72.2) Active confirmed Resistant to previous conservative treatment Problem Plantar fasciitis of left foot (72537088096306 101) Plantar fasciitis of left foot (M72.2) Active confirmed Problem Interstitial myositis (50347211) Interstitial myositis of left foot (M60.172) Active confirmed Vital Signs Blood pressure diastolic 80 mm Hg 08/15/2024 Height 5ft8in in 08/15/2024 Blood pressure systolic 120 mm Hg 08/15/2024 Weight 258 lbs 08/15/2024 BMI 39.22 kg/m2 08/15/2024 Encounters Encounter Location Date Provider Diagnosis [address] [address] 06/06/2024 Bernice Perica Pain in left foot M79.672 ; Plantar fasciitis of left foot M72.2 ; Calcaneal spur, left foot M77.32 ; Interstitial myositis of left foot M60.172 and Bursitis of left foot M77.[address] [address] 08/15/2024 Bernice Perica Calcaneal spur, left foot M77.32 ; Plantar fasciitis M72.2 ; Interstitial myositis of left foot M60.172 ; Bursitis of left foot M77.52 ; Calcaneal spur, right M77.31 and Pain in right foot M79.[address] [address] 05/14/2024 Bernice Kelsia [address] [address] 06/06/2024 Bernice Jett [facility] [place] [address] [place] [address] 06/06/2024 Bernice Jett [facility] [place] [address] [place] [address] 06/14/2024 Bernice Jett [facility] [place] [address] [place] [address] 08/15/2024 Bernice Jett Assessments Encounter Date Diagnosis [...] Insured Coverage Start Date Coverage End Date [facility] [address] [place] [address] [id number] Huber Moss Spouse - patient is the spouse of the insured Medical (General) History Medical History History ICD Code Asthma Back,Hip,and Knee pain Covid 19 HBP Sciatica Sinusitis Warts Surgical History Surgery Date(Month/Year) hysterectomy Herniated disc
== END 2024-11-29 16:42 | disposition home or self-care (01) ==
LOC: HO.HMCC 11:38
PROVIDERS: PCP Internal Medicine; Visit Provider Internal Medicine
DX: J30.2 Other seasonal allergic rhinitis (principal); J45.20 Mild intermittent asthma, uncomplicated

== ENCOUNTER → 2024-11-29 11:37 | Outpatient (BNVA) | payer OTHER, SELFPAY | PROVIDERS: PCP Internal Medicine; Visit Provider Internal Medicine | DX: J30.2 Other seasonal allergic rhinitis (principal); J45.20 Mild intermittent asthma, uncomplicated; Z13.31 Encounter for screening for depression | CPT/HCPCS: 96127; 99212 ==

== ENCOUNTER 2024-12-26 09:59 | Outpatient (REF) | payer OTHER, SELFPAY | END 2024-12-26 10:00 | disposition home or self-care (01) | LOC: HO.MAMMO 09:59 | PROVIDERS: PCP Internal Medicine; Visit Provider Internal Medicine | DX: Z12.31 Encounter for screening mammogram for malignant neoplasm of breast (principal) | CPT/HCPCS: 77063; 77067 ==

== ENCOUNTER → 2024-12-26 10:15 | Outpatient (BNV) | payer OTHER, SELFPAY | PROVIDERS: PCP Internal Medicine; Visit Provider Internal Medicine | DX: Z12.31 Encounter for screening mammogram for malignant neoplasm of breast (principal) | CPT/HCPCS: 77063; 77067 ==

== ENCOUNTER 2025-01-16 08:16 | Outpatient (AMB) | payer OTHER, SELFPAY ==
--- NOTE | 2025-01-16 08:18 | A.OFFVIS_ITS ---
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 No complaints. Last Pap/HPV was in 04/05, the patient is status post TAHBSO in 02/06 Last Mammogram was BI-RADS 1 in 01/12 Last Colonoscopy was in 04/05, the recommendation was to repeat in 10 years [facility] Medical History Plantar fasciitis of left foot Interstitial myositis of left foot Bursitis of left foot Impaired fasting glucose Hypertriglyceridemia Plantar fasciitis, bilateral Morbid obesity with BMI of 40.0-44.9, adult Surgical menopause Family history of malignant melanoma Right shoulder pain Uterine fibroid Osteoarthritis of spine Seasonal allergies Essential hypertension Surgical History History of removal of nevus History of back surgery History of endometrial biopsy History of total abdominal hysterectomy and bilateral salpingo-oophorectomy Family History Father No problems noted. Mother Epilepsy Lupus Maternal Grandfather Asthma Maternal Grandmother Heart disease Paternal Grandfather No problems noted. Paternal Grandmother Stroke Dementia Diabetes mellitus Brother No problems noted. Son No problems noted. Daughter Colitis Melanoma Social History Housing: House Alcohol intake: current Alcohol intake frequency: holidays/special occasions only Patient Tobacco Use Status: Never used Tobacco Years Smoked: 6 months as a teenager e-Cigarette/Vaping Use: Never Used Second Hand Smoke Exposure: Yes (as a child ) Patient : No Current occupational status: retired Current occupation: [employer] handed Sexual orientation: Straight/Heterosexual Gender identity: Female Cognitive needs: No Hearing needs: No Vision needs: Yes Female Reproductive History Menstrual control method: none Total pregnancies: 3 Full term: 2 Ab spontaneous: 1 Date of last pap smear: 03/24/15 (negative pap smear,negative hpv ) Date of Mammogram: 12/26/24 (bi rad 1) Review of Systems Const All systems reviewed & are unremarkable except as noted in HPI and below Card Reports as per HPI and Reports no additional complaints Resp Reports as per HPI and Reports no additional complaints GI Reports as per HPI and Reports no additional complaints Reports as per HPI Physical Exam Vital Signs: Last Vital Signs BP 120/72 01/16/25 08:22 BMI result Body Mass Index 40.3 Const General: cooperative, healthy appearing and comfortable General: Yes bladder normal to palpation External Female Exam: No lesion Speculum Exam - Vagina: normal appearance of the vagina, normal vaginal discharge and not erythematous Speculum Exam - Cervix: Cervix absent Bimanual exam- vagina & uterus: bladder normal to palpation and uterus absent Bimanual Exam- Adnexa, other: Other (No masses detected) Assessment & Plan Assessment & Plan (1) Well woman exam: Code(s): Z01.419 - Encounter for gynecological examination (general) (routine) without abnormal findings Category: Medical Plan: Co testing not indicated. Counseled the patient about the recommended dietary allowance of 1200 mg of Calcium & 600 IU of vitamin D. Instructions given to patient to schedule next screening Mammogram in 01/13. The patient stated that she was told that she will be referred to GI for screening colonoscopy by her PCP in 04/11 . The patient was instructed to perform monthly self-breast exams and schedule annual exam in a year. All questions answered and the patient verbalized understanding. Coding Level of Care Code Est Pt Prev Care 40-64y(22463) Diagnoses Well woman exam Z01.419
[2025-01-16 08:22] VITALS: BP 120/72; BMI 40.3
== END 2025-01-16 08:42 | disposition home or self-care (01) ==
PROVIDERS: PCP Internal Medicine; Visit Provider Obstetrics & Gynecology
DX: Z01.419 Encounter for gynecological examination (general) (routine) without abnormal findings (principal)
CPT/HCPCS: 99396; 99459